=== PATIENT | female | born 1995 | race Two or more races ===

== ENCOUNTER 2016-09-10 23:31 | Emergency (ER) | payer MEDICAID ==
[~2016-09-10] VITALS: Ht 152.4 cm; Wt 66.0 kg
[~2016-09-10 23:31] MED LIST: AMOX1TAB64 PO; LEVO500T33 PO; MAGN64TA9 PO; OXYC1TAB7 PO
[2016-09-10 23:39] VITALS: BP 118/77
== END 2016-09-11 00:33 | disposition home or self-care (01) ==
LOC: ED 23:59
DX: K02.9 Dental caries, unspecified (principal)
CPT/HCPCS: 99283

== ENCOUNTER 2016-11-11 13:35 | Inpatient (IN) | payer MEDICAID ==
[~2016-11-11] VITALS: Ht 152.4 cm; Wt 65.3 kg
[2016-11-11 15:28] LABS: HEMATOCRIT 29.8 % (34.6-47.8); WHITE BLOOD COUNT 10.7 x10^3/uL (3.4-10)
[2016-11-11 16:03] LABS: ASPARTATE AMINO TRANSFERASE 13 U/L (15-37); BLOOD UREA NITROGEN 6 mg/dL (7-18)
[2016-11-11] MEDS ORDERED: SODIUM CHLORIDE 0.9% 1,000ML IVBOLUS ONE (17:00)
[2016-11-11] MEDS ORDERED: CEFTRIAXONE PMX 1GM/50ML 50 ML IV ONE (17:00)
[2016-11-11] MEDS ORDERED: SODIUM CHLORIDE 0.9% 1,000 ML IV ONE (17:03)
[2016-11-11] MEDS ORDERED: CEFTRIAXONE PMX 1GM/50ML 50 ML ONE (17:20)
[2016-11-11] MEDS ORDERED: POTASSIUM CHLORIDE 20 MEQ TAB.ER.PRT PO ONE (17:30)
[2016-11-11] MEDS ORDERED: ONDANSETRON ODT 4 MG PO PRN (17:30)
[2016-11-11] MEDS: CEFTRIAXONE PMX 1GM/50ML 50 ML IV SCH (17:30)
[2016-11-11] MEDS ORDERED: SODIUM CHLORIDE FLUSH 10ML SYR IVF PRN (17:30)
[2016-11-11] MEDS ORDERED: ACETAMINOPHEN 325 MG TABLET PO PRN (17:30)
[2016-11-11] MEDS ORDERED: DOCUSATE 100 MG CAPSULE PO PRN (17:30)
[2016-11-11] MEDS ORDERED: CALCIUM CARBONATE 500 MG TAB.CHEW PO PRN (17:30)
[2016-11-11 17:46] LABS: FERRITIN 7.8 ng/mL (8-252)
[2016-11-11 19:00] VITALS: BP 89/57
[2016-11-11] MEDS: NS + 20MEQ KCL 1,000 ML IV SCH (21:24)
[2016-11-11] MEDS: PRENATAL VIT/IRON/FA 1 EACH TABLET PO SCH (21:25)
[2016-11-11 21:34] VITALS: BP 89/57
[2016-11-12 00:01] VITALS: BP 102/65
[2016-11-12] MEDS: NS + 20MEQ KCL 1,000 ML IV SCH ×2 (05:27→16:36)
[2016-11-12 05:59] LABS: HEMATOCRIT 30.3 % (34.6-47.8); HEMOGLOBIN 10.2 g/dL (11.7-16.4); WHITE BLOOD COUNT 9.8 x10^3/uL (3.4-10)
[2016-11-12 06:07] VITALS: BP 99/65
[2016-11-12 06:22] LABS: BLOOD UREA NITROGEN 6 mg/dL (7-18)
[2016-11-12] MEDS: PRENATAL VIT/IRON/FA 1 EACH TABLET PO SCH (08:21)
[2016-11-12 14:30] VITALS: BP 101/63
[2016-11-12] MEDS: CEFTRIAXONE PMX 1GM/50ML 50 ML IV SCH (16:37)
[2016-11-12] MEDS: FERROUS SULFATE 325 MG TABLET PO SCH (18:12)
[2016-11-12 20:23] VITALS: BP 97/64
[2016-11-13] MEDS: NS + 20MEQ KCL 1,000 ML IV SCH ×4 (00:09→19:25)
[2016-11-13 05:12] LABS: HEMATOCRIT 30.6 % (34.6-47.8); HEMOGLOBIN 10.3 g/dL (11.7-16.4)
[2016-11-13 05:21] LABS: BLOOD UREA NITROGEN 6 mg/dL (7-18)
[2016-11-13 05:23] LABS: ASPARTATE AMINO TRANSFERASE 12 U/L (15-37)
[2016-11-13 05:46] VITALS: BP 107/74
[2016-11-13 07:32] VITALS: BP 96/66
[2016-11-13] MEDS: PRENATAL VIT/IRON/FA 1 EACH TABLET PO SCH (09:51)
[2016-11-13] MEDS: FERROUS SULFATE 325 MG TABLET PO SCH ×2 (09:51→17:37)
[2016-11-13] MEDS ORDERED: ONDANSETRON ODT 4 MG PO PRN (14:00)
[2016-11-13] MEDS ORDERED: CALCIUM CARBONATE 500 MG TAB.CHEW PO PRN (14:00)
[2016-11-13] MEDS ORDERED: ACETAMINOPHEN 325 MG TABLET PO PRN (14:00)
[2016-11-13] MEDS ORDERED: DOCUSATE 100 MG CAPSULE PO PRN (14:00)
[2016-11-13 14:50] VITALS: BP 99/67
[2016-11-13] MEDS: CEFTRIAXONE PMX 1GM/50ML 50 ML IV SCH (17:38)
[2016-11-13 19:39] VITALS: BP 99/64
[2016-11-14 01:00] VITALS: BP 100/69
[2016-11-14] MEDS: NS + 20MEQ KCL 1,000 ML IV SCH (03:08)
[2016-11-14] MEDS ORDERED: PREN1TAB14 PO (08:38)
[2016-11-14] MEDS ORDERED: CEFD300C37 PO (08:38)
[2016-11-14] MEDS ORDERED: CEFDINIR 300 MG CAPSULE PO SCH (09:00)
[2016-11-14] MEDS: FERROUS SULFATE 325 MG TABLET PO SCH (10:02)
[2016-11-14] MEDS: PRENATAL VIT/IRON/FA 1 EACH TABLET PO SCH (10:03)
[2016-11-14 10:13] VITALS: BP 103/69
== END 2016-11-14 10:54 | disposition home or self-care (01) | DRG 781 ==
LOC: ED 15:54 → EDIP 17:03 → 3NE 19:00 → DCLOUNGE 11-14 10:35
PROVIDERS: ADMIT Internal Medicine; ATTEND Internal Medicine
DX: O98.811 Other maternal infectious and parasitic diseases complicating pregnancy, first trimester (principal); A41.9 Sepsis, unspecified organism; E43 Unspecified severe protein-calorie malnutrition; O23.02 Infections of kidney in pregnancy, second trimester; D50.9 Iron deficiency anemia, unspecified; F17.200 Nicotine dependence, unspecified, uncomplicated; O99.322 Drug use complicating pregnancy, second trimester; E87.6 Hypokalemia; B96.20 Unspecified Escherichia coli [E. coli] as the cause of diseases classified elsewhere; F12.90 Cannabis use, unspecified, uncomplicated; K21.9 Gastro-esophageal reflux disease without esophagitis; O25.12 Malnutrition in pregnancy, second trimester; O99.012 Anemia complicating pregnancy, second trimester; Z32.01 Encounter for pregnancy test, result positive; B95.1 Streptococcus, group B, as the cause of diseases classified elsewhere; O99.282 Endocrine, nutritional and metabolic diseases complicating pregnancy, second trimester; O99.332 Smoking (tobacco) complicating pregnancy, second trimester; O99.612 Diseases of the digestive system complicating pregnancy, second trimester; Z68.28 Body mass index [BMI] 28.0-28.9, adult; Z3A.14 14 weeks gestation of pregnancy; Z83.3 Family history of diabetes mellitus; Z80.9 Family history of malignant neoplasm, unspecified
CPT/HCPCS: 36415; 76801; 80048; 80053; 81001; 82728; 83540; 83550; 83605; 83735; 84145; 84466; 84702; 85025; 87040; 87077; 87086; 87147; 87186; 99285; J0696; J3480; J7030

== ENCOUNTER 2018-02-14 16:17 | Emergency (ER) | payer MEDICAID, OTHER ==
[~2018-02-14] VITALS: Ht 152.4 cm; Wt 69.5 kg
[~2018-02-14 16:17] MED LIST changes: +CEFD300C37 PO; -LEVO500T33 PO; +LEVO500T47 PO; -MAGN64TA9 PO; +MAGNESIUM DR64 MG PO; +PREN1TAB14 PO
[2018-02-14 16:21] VITALS: BP 126/33
== END 2018-02-14 17:07 | disposition home or self-care (01) ==
LOC: ED 16:40
DX: J06.9 Acute upper respiratory infection, unspecified (principal); J20.8 Acute bronchitis due to other specified organisms; H92.01 Otalgia, right ear; B97.89 Other viral agents as the cause of diseases classified elsewhere
CPT/HCPCS: 71046; 99283

== ENCOUNTER 2018-04-03 13:31 | Emergency (ER) | payer MEDICAID ==
[~2018-04-03] VITALS: Ht 152.4 cm; Wt 72.1 kg
--- NOTE | 2018-04-03 14:53 | NUR ---
RETURNED FROM LUNCH AND REPORT RECEIVED FROM GUEYDAN. PATIENT IN BED, SIG OTHER AT BEDSIDE. COLLECTING URINE FROM PATIENT AT THIS TIME. VSS. ON MONITOR, RAILS UP, GOWNED. PATIENT APPARENTLY ARRIVED WITH VAGINAL BLEEDING DURING EARLY STAGES OF .
[2018-04-03 15:04] LABS: BASOPHILS # (AUTO) 0.03 x10^3/uL (0-0.1); BASOPHILS % (AUTO) 0 % (0-1); EOSINOPHILS # (AUTO) 0.06 x10^3/uL (0-0.4); EOSINOPHILS % (AUTO) 1 % (1-7); LYMPHOCYTES % (AUTO) 31 % (22-44); MD NO; MEAN CORPUSCULAR HEMOGLOBIN 26.1 pg (27.0-34.8); MEAN CORPUSCULAR HGB CONC 33.4 g/dL (32.4-35.8); MEAN CORPUSCULAR VOLUME 78.1 fL (80-100); MEAN PLATELET VOLUME 9.3 fL (7.4-10.4); MONOCYTES # (AUTO) 0.59 x10^3/uL (0.2-0.8); MONOCYTES % (AUTO) 7 % (2-9); NEUTROPHILS # (AUTO) 5.23 x10^3/uL (1.8-6.8); NEUTROPHILS % (AUTO) 61 % (42-75); PLATELET COUNT 280 x10^3/uL (130-400); RED BLOOD COUNT 4.26 x10^6/uL (3.82-5.3)
--- NOTE | 2018-04-03 15:11 | NUR ---
urine sent to lab labeled in patient presence.
[2018-04-03 15:49] LABS: CULTURE INDICATED? NO; MICROSCOPIC NOT IND
[2018-04-03 15:55] VITALS: BP 123/78
--- NOTE | 2018-04-03 15:56 | NUR ---
PATIENT DISCHARGE INSTRUCTIONS REVIEWED. SHOWS UNDERSTANDING.
== END 2018-04-03 16:07 | disposition home or self-care (01) ==
LOC: ED 14:58
DX: O20.0 Threatened abortion (principal); Z3A.08 8 weeks gestation of pregnancy
CPT/HCPCS: 36415; 76801; 81003; 84702; 85025; 86901; 99284

== ENCOUNTER 2018-09-25 21:56 | Emergency (ER) | payer MEDICAID, OTHER ==
[~2018-09-25] VITALS: Ht 152.4 cm; Wt 68.1 kg
[2018-09-25 22:15] VITALS: BP 87/54
--- NOTE | 2018-09-25 22:45 | NUR ---
PT IN GOWN AND ATTACHED TO MONITOR, AAO X 4, VSS. HERE TO DETERMINE IF . PT HAS BLOATING, CRAMPS, POSITIVE TEST 3 WEEKS AGO.
--- NOTE | 2018-09-25 22:54 | NUR ---
REPORT GIVEN TO LAWRENCE TORRES
--- NOTE | 2018-09-25 23:10 | NUR ---
PT GOING TO US.
[2018-09-25 23:19] LABS: MICROSCOPIC AUTO
--- NOTE | 2018-09-25 23:22 | NUR ---
PT BACK FROM US
[2018-09-25 23:24] LABS: CULTURE INDICATED? YES
[2018-09-25 23:41] LABS: BASOPHILS # (AUTO) 0.03 x10^3/uL (0-0.1); BASOPHILS % (AUTO) 0 % (0-1); EOSINOPHILS # (AUTO) 0.03 x10^3/uL (0-0.4); EOSINOPHILS % (AUTO) 0 % (1-7); LYMPHOCYTES % (AUTO) 30 % (22-44); MD NO; MEAN CORPUSCULAR HEMOGLOBIN 26.2 pg (27.0-34.8); MEAN CORPUSCULAR VOLUME 79.4 fL (80-100); MEAN PLATELET VOLUME 9.1 fL (7.4-10.4); MONOCYTES # (AUTO) 0.56 x10^3/uL (0.2-0.8); MONOCYTES % (AUTO) 6 % (2-9); NEUTROPHILS # (AUTO) 5.81 x10^3/uL (1.8-6.8); NEUTROPHILS % (AUTO) 63 % (42-75); PLATELET COUNT 324 x10^3/uL (130-400); RED BLOOD COUNT 3.57 x10^6/uL (3.82-5.3); RED CELL DISTRIBUTION WIDTH 17.5 % (9.6-15.2)
[2018-09-25 23:45] LABS: ALANINE AMINOTRANSFERASE 12 U/L (12-78); ALBUMIN 2.8 g/dL (3.4-5.0); ANION GAP 9 mmol/L (5-15); CALCIUM 8.2 mg/dL (8.5-10.1); CHLORIDE 111 mmol/L (98-107)
--- NOTE | 2018-09-25 23:57 | NUR ---
LABS PENDING AT THIS TIME. US RESULTED, PT RESTING CALMLY IN BED AT THIS TIME.
[2018-09-26 00:02] LABS: CREATININE 0.54 mg/dL (0.55-1.02)
[2018-09-26 00:03] LABS: ALKALINE PHOSPHATASE 66 U/L (45-117); BILIRUBIN,TOTAL 0.2 mg/dL (0.2-1.0); TOTAL PROTEIN 6.7 g/dL (6.4-8.2)
== END 2018-09-26 01:24 | disposition home or self-care (01) ==
LOC: ED 09-26 00:31
DX: O26.892 Other specified pregnancy related conditions, second trimester (principal); M54.5 Low back pain; Z3A.17 17 weeks gestation of pregnancy
CPT/HCPCS: 36415; 76815; 80053; 81001; 84702; 85025; 86901; 87086; 99284

== ENCOUNTER 2019-02-15 15:25 | Emergency (ER) | payer SELFPAY ==
[~2019-02-15] VITALS: Ht 152.4 cm; Wt 73.0 kg
--- NOTE | 2019-02-15 15:34 | NUR ---
23 Y/O FEMALE BIB AMBULANCE WITH C/O MENDOZA. PER REPOT PT HAS HAD COUGH AND COLD FOR 2 DAYS. THIS MORNING SHE GOT A HEADACHE. SHE ALSO STATED SHE IS AND DUE 03/15/2019. NO CARE, BUT TAKES VITAMINS. "I CALLED BECAUSE MY FEET HURT REALLY BAD AND I CAN'T WALK ON THEM. THEY'VE BEEN SWOLLEN FOR ABOUT TWO WEEKS. AND MY HEAD IS KILLING ME. MY HEADACHE STARTED TODAY." PT PLACED ON CONT PULSE OX,NIBP. NO C/O N/V/D, TRAUMA, SYNCOPE, CP, SOB, OR ABDOMINAL PAIN.
--- NOTE | 2019-02-15 15:39 | NUR ---
PT STATES "I USE HEROIN AND MARUJUANA. I DID HEROIN YESTERDAY."
[2019-02-15] MEDS ORDERED: ACETAMINOPHEN 500 MG TABLET PO ONE (16:00)
[2019-02-15] MEDS ORDERED: CALCIUM CARBONATE 500 MG TAB.CHEW PO ONE (16:00)
[2019-02-15] MEDS ORDERED: ONDANSETRON ODT 8 MG PO ONE (16:00)
[2019-02-15] MEDS ORDERED: ONDANSETRON ODT 8 MG ONE (16:13)
[2019-02-15] MEDS ORDERED: CALCIUM CARBONATE 500 MG TAB.CHEW ONE (16:13)
[2019-02-15] MEDS ORDERED: ACETAMINOPHEN 500 MG TABLET ONE (16:14)
--- NOTE | 2019-02-15 16:21 | NUR ---
PT MEDICATED PER MAR. VSS. US COMPLETE. L&D RN TO BS FOR FHT. NO NEEDS EXPRESSED. AWAITING RESUTLS.
[2019-02-15 16:27] LABS: ALBUMIN 1.3 g/dL (3.4-5.0); ANION GAP 7 mmol/L (5-15); CALCIUM 7.9 mg/dL (8.5-10.1); CHLORIDE 109 mmol/L (98-107)
--- NOTE | 2019-02-15 16:29 | NUR ---
PT RESTING IN ROOM. MORE CALM AFTER ATHLETIC AGENT. VSS. NO NEEDS EXPRESSED. AWAITING RESULTS.
[2019-02-15 16:30] LABS: ALANINE AMINOTRANSFERASE 15 U/L (12-78); ALKALINE PHOSPHATASE 267 U/L (45-117); BILIRUBIN,TOTAL 0.4 mg/dL (0.2-1.0); CREATININE 1.27 mg/dL (0.55-1.02); TOTAL PROTEIN 5.4 g/dL (6.4-8.2)
--- NOTE | 2019-02-15 17:01 | NUR ---
REPORT TO BRIAN DAVISON. PT RESTING IN ROOM. PELVIC BED AND PELVIC CART READY. PER L&D NURSE, WILL NEED EVALUATION IN THEIR DEPT AFTER MED CLEARANCE.
[2019-02-15 17:10] LABS: MD YES; MEAN CORPUSCULAR HEMOGLOBIN 22.3 pg (27.0-34.8); MEAN CORPUSCULAR VOLUME 69.7 fL (80-100); MEAN PLATELET VOLUME 10.9 fL (7.4-10.4); PLATELET COUNT 127 x10^3/uL (130-400); RED BLOOD COUNT 4.41 x10^6/uL (3.82-5.3); RED CELL DISTRIBUTION WIDTH 18.8 % (9.6-15.2)
[2019-02-15 17:13] LABS: BAND#(MANUAL) 0.78 x10^3/uL; BANDS%(MANUAL) 12 % (0-7); LYMPH#(MANUAL) 0.72 x10^3/uL (1-3.4); LYMPHS% (MANUAL) 11 % (22-44); METAMYELOCYTES# (MANUAL) 0.07 x10^3/uL (0-0); METAMYELOCYTES% (MANUAL) 1 % (0-1); MONOS#(MANUAL) 0.26 x10^3/uL (0.3-2.7); MONOS% (MANUAL) 4 % (2-9); NRBC % (MANUAL) 1 % (0-1); SEG#(MANUAL) 4.68 x10^3/uL (1.8-6.8); SEGS% (MANUAL) 72 % (42-75)
[2019-02-15 17:14] LABS: ANISOCYTOSIS 1+; HYPOCHROMIA 1+; MICROCYTOSIS 1+; POLYCHROMASIA 1+
[2019-02-15 17:15] LABS: <PLATELET ESTIMATE> DECREASED; GIANT PLATELETS 1+; LARGE PLATELETS 1+
--- NOTE | 2019-02-15 17:32 | NUR ---
PELVIC EXAM COMPLETED BY DR SU WITH THIS RN POTATO CHIP COOKER MACHINE. SWABS SENT TO LAB.
--- NOTE | 2019-02-15 17:33 | NUR ---
PT RESTING IN ROOM. VSS. CRACKERS AND JUICE PROVIDED. NO OTHER NEEDS EXPRESSED. AWAITING RESUTLS.
[2019-02-15 17:41] LABS: CULTURE INDICATED? YES; MICROSCOPIC INDICATED
[2019-02-15 17:50] LABS: CLUE CELLS NONE SEEN (NONE SEEN); WET PREP WBCS MANY (FEW)
[2019-02-15] MEDS ORDERED: AZITHROMYCIN 500 MG TABLET PO ONE (18:00)
[2019-02-15] MEDS ORDERED: CEFTRIAXONE 250 MG IM ONE (18:00)
[2019-02-15 18:18] LABS: AMPHETAMINE SCREEN, URINE Positive (Negative); BARBITURATE SCREEN, URINE Negative (Negative); BENZODIAZEPINE SCREEN, URINE Negative (Negative); CANNABINOID SCREEN, URINE Positive (Negative); COCAINE SCREEN, URINE Negative (Negative); METHADONE SCREEN, URINE Negative (Negative); OPIATE SCREEN, URINE Positive (Negative)
[2019-02-15 18:44] VITALS: BP 137/65
--- NOTE | 2019-02-15 18:45 | NUR ---
Data Mining Analyst reviewed discharge paperwork. Focused on neccesity of taking abx for UTI, avoiding illicits. Transfered to OB via wheelchair by EMT
[2019-02-15] MEDS ORDERED: AZITHROMYCIN 500 MG TABLET ONE (19:13)
[2019-02-15] MEDS ORDERED: LIDOCAINE-MPF 1%, 2ML ONE (19:13)
[2019-02-15] MEDS ORDERED: CEFTRIAXONE 250 MG ONE (19:14)
== END 2019-02-15 18:46 | disposition home or self-care (01) ==
LOC: ED 15:50
DX: O23.43 Unspecified infection of urinary tract in pregnancy, third trimester (principal); O9A.213 Injury, poisoning and certain other consequences of external causes complicating pregnancy, third trimester; D64.9 Anemia, unspecified; R51 Headache; F11.10 Opioid abuse, uncomplicated; F15.10 Other stimulant abuse, uncomplicated; R60.0 Localized edema; Z3A.35 35 weeks gestation of pregnancy
CPT/HCPCS: 31500; 36415; 76815; 80053; 80307; 81001; 85025; 87086; 87210; 87491; 87591; 87808; 92950; 96372; 99284; J0696; Q0162

== ENCOUNTER 2019-02-15 18:48 | Inpatient (IN) | payer MEDICAID ==
[~2019-02-15] VITALS: Ht 152.4 cm; Wt 65.7 kg
[2019-02-15] MEDS ORDERED: ACETAMINOPHEN 325 MG TABLET ONE (19:39)
[2019-02-15] MEDS: ACETAMINOPHEN 650 MG/20.3 ML UDC PO PRN (19:45)
[2019-02-15] MEDS ORDERED: CALCIUM CARBONATE 500 MG TAB.CHEW ONE (19:59)
[2019-02-15] MEDS: CALCIUM CARBONATE 500 MG TAB.CHEW PO PRN (20:30)
[2019-02-15 20:59] LABS: MICROSCOPIC INDICATED
[2019-02-15] MEDS ORDERED: BETAMETHASONE 6 MG/ML, 5ML IM ONE (21:13)
[2019-02-15] MEDS ORDERED: hydrOXYzine 50 MG/ML IM PRN (21:30)
[2019-02-15] MEDS ORDERED: BETAMETHASONE 6 MG/ML, 5ML IM SCH (21:30)
[2019-02-15] MEDS ORDERED: D5%-LACTATED RINGERS 1,000 ML IV SCH (22:05)
[2019-02-15] MEDS ORDERED: AMPICILLIN 2 GM in SODIUM CHLORIDE 0.9% 100 ML IVPB ONE (22:05)
[2019-02-15] MEDS ORDERED: OXYTOCIN 30U/ 0.9% NaCL 500ML 500 ML IV PRN (22:05)
[2019-02-15] MEDS ORDERED: LACTATED RINGERS 1,000 ML IV SCH ×2 (22:05→22:48)
[2019-02-15] MEDS ORDERED: MAGNESIUM SULF. PMX 20GM/500ML 500 ML IV ONE (22:16)
[2019-02-15] MEDS ORDERED: OXYTOCIN 30U/ 0.9% NaCL 500ML 500 ML ONE (22:16)
[2019-02-15] MEDS ORDERED: NEWBORN KIT ONE (22:17)
[2019-02-15] MEDS ORDERED: MISOPROSTOL 200 MCG TABLET ONE (22:17)
[2019-02-15] MEDS ORDERED: LIDOCAINE 1%, 20ML ONE (22:17)
[2019-02-15] MEDS ORDERED: FENTANYL PF 100 MCG/2ML IV PRN (22:30)
[2019-02-15] MEDS ORDERED: metroNIDAZOLE 500 MG TABLET PO ONE (22:30)
[2019-02-15] MEDS: MAGNESIUM SULF. PMX 20GM/500ML 500 ML IV SCH (22:30)
[2019-02-15] MEDS ORDERED: ALUMINUM/MAG/SIMETHICONE 30 ML UDC PO PRN (22:30)
[2019-02-15] MEDS ORDERED: MAGNESIUM SULFATE PMX 4GM/100M 100 ML IVPB ONE (22:30)
[2019-02-15] MEDS ORDERED: FENTANYL PF 100 MCG/2ML IVPush PRN (22:30)
[2019-02-15] MEDS ORDERED: FENTANYL/BUPIV./NS/PF 250 ML EPIDCONT SCH (22:48)
[2019-02-15] MEDS: LACTATED RINGERS 1,000 ML IVBOLUS PRN (22:56)
[2019-02-15] MEDS ORDERED: EPHEDRINE 50 MG/ML, 1ML IVPush PRN (23:00)
[2019-02-15] MEDS ORDERED: ONDANSETRON 2MG/ML, 2ML ONE (23:12)
[2019-02-15] MEDS: ONDANSETRON 2MG/ML, 2ML IVPush PRN (23:13)
[2019-02-15] MEDS ORDERED: BUPIVACAINE 0.25% ONE (23:26)
[2019-02-16] MEDS ORDERED: EPHEDRINE 50 MG/ML, 1ML ONE ×2 (00:26→01:53)
[2019-02-16 02:05] LABS: ALANINE AMINOTRANSFERASE 12 U/L (12-78); ALBUMIN 1.2 g/dL (3.4-5.0); ANION GAP 9 mmol/L (5-15); CALCIUM 7.7 mg/dL (8.5-10.1); CHLORIDE 109 mmol/L (98-107); CREATININE 1.34 mg/dL (0.55-1.02)
[2019-02-16 02:08] LABS: ALKALINE PHOSPHATASE 251 U/L (45-117); BILIRUBIN,TOTAL 0.3 mg/dL (0.2-1.0); TOTAL PROTEIN 4.9 g/dL (6.4-8.2)
[2019-02-16] MEDS: AMPICILLIN 1 GM in SODIUM CHLORIDE 0.9% 50 ML IVPB SCH ×2 (02:30→06:20)
[2019-02-16 03:17] LABS: MD YES; MEAN CORPUSCULAR HEMOGLOBIN 21.7 pg (27.0-34.8); MEAN CORPUSCULAR HGB CONC 30.9 g/dL (32.4-35.8); MEAN PLATELET VOLUME 13.6 fL (7.4-10.4); PLATELET COUNT 160 x10^3/uL (130-400); RED BLOOD COUNT 3.94 x10^6/uL (3.82-5.3); RED CELL DISTRIBUTION WIDTH 19.6 % (9.6-15.2)
[2019-02-16 03:19] LABS: <PLATELET ESTIMATE> ADEQUATE; ANISOCYTOSIS 1+; BAND#(MANUAL) 0.21 x10^3/uL; BANDS%(MANUAL) 4 % (0-7); HYPOCHROMIA 1+; LARGE PLATELETS 1+; LYMPH#(MANUAL) 0.64 x10^3/uL (1-3.4); LYMPHS% (MANUAL) 12 % (22-44); MICROCYTOSIS 1+; POLYCHROMASIA 1+; SEG#(MANUAL) 4.45 x10^3/uL (1.8-6.8); SEGS% (MANUAL) 84 % (42-75)
[2019-02-16] MEDS ORDERED: CALCIUM CARBONATE 500 MG TAB.CHEW ONE (05:02)
[2019-02-16] MEDS: CALCIUM CARBONATE 500 MG TAB.CHEW PO PRN (05:06)
[2019-02-16] MEDS ORDERED: MAGNESIUM SULF. PMX 20GM/500ML 500 ML IV ONE (06:13)
[2019-02-16] MEDS: MAGNESIUM SULF. PMX 20GM/500ML 500 ML IV SCH (06:20)
[2019-02-16] MEDS ORDERED: ONDANSETRON 2MG/ML, 2ML ONE ×2 (07:45→08:15)
[2019-02-16] MEDS ORDERED: SODIUM CITRATE/CITRIC ACID 30 ML UDC ONE (07:45)
[2019-02-16] MEDS: ONDANSETRON 2MG/ML, 2ML IVPush PRN ×2 (07:48→08:14)
[2019-02-16] MEDS ORDERED: METOCLOPRAMIDE 5 MG/ML, 2ML ONE (08:09)
[2019-02-16] MEDS ORDERED: OXYTOCIN 10 UNITS/ML, 1ML ONE (08:15)
[2019-02-16] MEDS ORDERED: CEFAZOLIN 1,000 MG ONE (08:15)
[2019-02-16] MEDS ORDERED: HYDROmorphone 2 MG/ML, 1ML ONE (08:16)
[2019-02-16] MEDS ORDERED: FENTANYL PF 100 MCG/2ML ONE (08:16)
[2019-02-16] MEDS: SODIUM CITRATE/CITRIC ACID 30 ML UDC PO PRN ×2 (08:20→11:46)
[2019-02-16] MEDS ORDERED: METOCLOPRAMIDE 5 MG/ML, 2ML IV ONE (08:30)
[2019-02-16] MEDS ORDERED: LACTATED RINGERS 1,000 ML IVBOLUS ONE (08:30)
[2019-02-16] MEDS ORDERED: SODIUM CITRATE/CITRIC ACID 30 ML UDC PO ONE (08:30)
[2019-02-16] MEDS ORDERED: LIDOCAINE 2% 100MG/5ML SYRINGE ONE ×2 (08:33)
[2019-02-16] MEDS ORDERED: AZITHROMYCIN 500 MG in SODIUM CHLORIDE 0.9% 250 ML IV ONE (10:00)
[2019-02-16] MEDS: OXYTOCIN 30U/ 0.9% NaCL 500ML 500 ML IV SCH ×2 (10:17→20:17)
[2019-02-16] MEDS ORDERED: LACTATED RINGERS 1,000 ML IV SCH ×2 (10:17)
[2019-02-16] MEDS ORDERED: MISOPROSTOL 200 MCG TABLET PR PRN (10:30)
[2019-02-16] MEDS ORDERED: morphine SULFATE 10 MG/ML, 1ML IVPush PRN (10:30)
[2019-02-16] MEDS ORDERED: SIMETHICONE 80 MG CHEW TAB PO PRN (10:30)
[2019-02-16] MEDS: LACTATED RINGERS 1,000 ML IVBOLUS PRN (10:30)
[2019-02-16] MEDS ORDERED: ACETAMINOPHEN 325 MG TABLET PO PRN (10:30)
[2019-02-16] MEDS ORDERED: ONDANSETRON 2MG/ML, 2ML IV PRN (10:30)
[2019-02-16] MEDS ORDERED: CARBOPROST TROMETHAMINE 250 MCG/ML, 1ML IM PRN (10:30)
[2019-02-16] MEDS ORDERED: IBUPROFEN 600 MG TABLET PO PRN (10:30)
[2019-02-16] MEDS: OXYcodone/APAP 5/325MG TABLET PO PRN ×3 (12:49→20:51)
[2019-02-16] MEDS ORDERED: SODIUM CHLORIDE 0.9% 1,000 ML IV SCH (13:00)
[2019-02-16] MEDS ORDERED: hydrALAzine 20 MG/ML, 1ML IV PRN (13:00)
[2019-02-16] MEDS: SODIUM CHLORIDE 0.9% 1,000 ML IV SCH ×2 (14:23→23:37)
[2019-02-16] MEDS: METHYLNALTREXONE 12 MG/0.6 ML SQ SCH (16:24)
[2019-02-16] MEDS ORDERED: FERROUS SULFATE 325 MG TABLET PO SCH (17:00)
[2019-02-16 17:28] LABS: MEAN CORPUSCULAR HEMOGLOBIN 22.1 pg (27.0-34.8); MEAN CORPUSCULAR HGB CONC 31.2 g/dL (32.4-35.8); MEAN CORPUSCULAR VOLUME 70.7 fL (80-100); MEAN PLATELET VOLUME 12.8 fL (7.4-10.4); PLATELET COUNT 181 x10^3/uL (130-400); RED BLOOD COUNT 2.92 x10^6/uL (3.82-5.3); RED CELL DISTRIBUTION WIDTH 19.6 % (9.6-15.2)
[2019-02-16 17:29] LABS: HEMOGRAM NOTE RECHECKED
[2019-02-16 18:15] VITALS: BP 87/66
[2019-02-16 18:20] LABS: MD YES
[2019-02-16 18:23] LABS: ANISOCYTOSIS 1+; BANDS%(MANUAL) 13 % (0-7); HYPOCHROMIA 1+; LYMPH#(MANUAL) 1.61 x10^3/uL (1-3.4); LYMPHS% (MANUAL) 14 % (22-44); METAMYELOCYTES# (MANUAL) 0.23 x10^3/uL (0-0); METAMYELOCYTES% (MANUAL) 2 % (0-1); MICROCYTOSIS 1+; MONOS#(MANUAL) 0.35 x10^3/uL (0.3-2.7); MONOS% (MANUAL) 3 % (2-9); POLYCHROMASIA 1+; SEG#(MANUAL) 7.82 x10^3/uL (1.8-6.8); SEGS% (MANUAL) 68 % (42-75)
[2019-02-16 18:24] LABS: <PLATELET ESTIMATE> ADEQUATE; BASOPHILLIC STIPPLING 1+; LARGE PLATELETS 1+
[2019-02-16] MEDS ORDERED: MAGNESIUM SULF. PMX 20GM/500ML 500 ML IV SCH ×2 (20:30→22:05)
[2019-02-16] MEDS: DOCUSATE 100 MG CAPSULE PO PRN (20:53)
[2019-02-16 21:05] VITALS: BP 115/83
[2019-02-16] MEDS: ACETAMINOPHEN 650 MG/20.3 ML UDC PO PRN (23:37)
[2019-02-17] VITALS (26 sets, daily range): BP systolic 45–195; BP diastolic 57–120
[2019-02-17] MEDS: OXYcodone/APAP 5/325MG TABLET PO PRN ×2 (01:00→05:09)
[2019-02-17] MEDS: OXYTOCIN 30U/ 0.9% NaCL 500ML 500 ML IV SCH (05:04)
[2019-02-17 06:36] LABS: CHLORIDE 106 mmol/L (98-107)
[2019-02-17 06:37] LABS: ANION GAP 11 mmol/L (5-15); CALCIUM 6.3 mg/dL (8.5-10.1); CREATININE 1.61 mg/dL (0.55-1.02)
[2019-02-17] MEDS ORDERED: CALCIUM CHLORIDE 13.6 MEQ/10 ML ONE (08:00)
[2019-02-17] MEDS ORDERED: EPINEPHRINE SYRINGE 0.1 MG/ML, 10ML ONE (08:00)
[2019-02-17] MEDS ORDERED: CODE BLUE RESPONSE XX ONE (08:00)
[2019-02-17] MEDS ORDERED: ATROPINE SYRINGE 0.1 MG/ML, 10ML ONE (08:00)
[2019-02-17] MEDS ORDERED: SODIUM BICARB 8.4%, 50ML SYRINGE ONE (08:00)
[2019-02-17] MEDS ORDERED: SUCCINYLCHOLINE 20 MG/ML, 10ML ONE (08:00)
[2019-02-17 08:20] LABS: MEAN CORPUSCULAR HEMOGLOBIN 25.6 pg (27.0-34.8); MEAN CORPUSCULAR HGB CONC 31.5 g/dL (32.4-35.8); MEAN CORPUSCULAR VOLUME 81.3 fL (80-100); RED BLOOD COUNT 1.94 x10^6/uL (3.82-5.3); RED CELL DISTRIBUTION WIDTH 26.8 % (9.6-15.2)
[2019-02-17 08:23] LABS: MD YES
[2019-02-17 08:36] LABS: MEAN PLATELET VOLUME 10.4 fL (7.4-10.4); PLATELET COUNT 13 x10^3/uL (130-400)
[2019-02-17 08:38] LABS: BAND#(MANUAL) 0.65 x10^3/uL; BANDS%(MANUAL) 6 % (0-7); LYMPH#(MANUAL) 5.45 x10^3/uL (1-3.4); LYMPHS% (MANUAL) 50 % (22-44); MONOS#(MANUAL) 0.22 x10^3/uL (0.3-2.7); MONOS% (MANUAL) 2 % (2-9); NRBC % (MANUAL) 2 % (0-1); SEG#(MANUAL) 4.58 x10^3/uL (1.8-6.8); SEGS% (MANUAL) 42 % (42-75)
[2019-02-17 08:39] LABS: ACANTHOCYTES 1+; ANISOCYTOSIS 2+; ECHINOCYTES 1+; HYPOCHROMIA 1+; MICROCYTOSIS 1+; OVALOCYTES 1+
[2019-02-17 08:40] LABS: <PLATELET ESTIMATE> DECREASED; LARGE PLATELETS 1+; SMUDGE CELLS 1+
[2019-02-17] MEDS ORDERED: PROPOFOL 100 ML IV PRN (08:48)
[2019-02-17 08:58] LABS: INTERNATIONAL NORMALIZED RATIO 1.1 (0.93-1.1); PROTHROMBIN TIME 11.5 Seconds (9.6-11.5)
[2019-02-17] MEDS: PRENATAL VIT/IRON/FA 1 EACH TABLET PO SCH (09:00)
[2019-02-17] MEDS ORDERED: LABETALOL 250 MG in DEXTROSE 5% 200 ML IV PRN (09:00)
[2019-02-17] MEDS ORDERED: PHARMACY MAY ADJ FOR RENAL FX MC SCH (09:00)
[2019-02-17] MEDS: LACTULOSE 20 GM/30 ML UDC PO SCH (09:00)
[2019-02-17] MEDS ORDERED: PROPOFOL 10 MG/ML, 20ML IVPush ONE (09:00)
[2019-02-17] MEDS ORDERED: PROPOFOL 100 ML IV ONE (09:03)
[2019-02-17] MEDS ORDERED: NOREPINEPHRINE 1 MG/ML, 4ML ONE (09:49)
[2019-02-17] MEDS ORDERED: IRON SUCROSE COMPLEX 100MG/5ML IV SCH (10:30)
[2019-02-17] MEDS ORDERED: SODIUM CHLORIDE 0.9% 1,000 ML IV SCH (10:30)
[2019-02-17 10:46] LABS: PROTHROMBIN TIME 10.5 Seconds (9.6-11.5)
[2019-02-17] MEDS ORDERED: NOREPINEPHRINE 8 MG in SODIUM CHLORIDE 0.9% 242 ML IV PRN (11:00)
[2019-02-17] MEDS ORDERED: NOREPINEPHRINE 4 MG in SODIUM CHLORIDE 0.9% 246 ML IV PRN (11:00)
[2019-02-17 11:01] LABS: TOTAL IRON BINDING CAPACITY 306 mcg/dL (250-450)
[2019-02-17 11:07] LABS: % IRON SATURATION 25 % (20-55); CREATINE KINASE, TOTAL 835 U/L (26-192); IRON LEVEL 76 mcg/dL (50-170)
[2019-02-17 11:17] LABS: ABSOLUTE RETICS # 0.07 x10^6/uL (0.5-2.5); RETICULOCYTE COUNT % 1.88 % (0.5-1.5)
[2019-02-17 11:26] LABS: RED BLOOD COUNT 3.69 x10^6/uL (3.82-5.3)
[2019-02-17 11:27] LABS: MEAN CORPUSCULAR HEMOGLOBIN 27.9 pg (27.0-34.8); MEAN CORPUSCULAR HGB CONC 31.8 g/dL (32.4-35.8); MEAN CORPUSCULAR VOLUME 87.9 fL (80-100); MEAN PLATELET VOLUME 9.3 fL (7.4-10.4); PLATELET COUNT 208 x10^3/uL (130-400); RED BLOOD COUNT 3.71 x10^6/uL (3.82-5.3); RED CELL DISTRIBUTION WIDTH 20.7 % (9.6-15.2)
[2019-02-17 11:35] LABS: MD YES
[2019-02-17] MEDS ORDERED: OMNIPAQUE 350 MG/ML, 100ML BOTTLE ONE (11:42)
[2019-02-17] MEDS ORDERED: LIDOCAINE 1%, 20ML ONE (11:45)
[2019-02-17 11:52] LABS: ANISOCYTOSIS 1+; BAND#(MANUAL) 1.65 x10^3/uL; BANDS%(MANUAL) 6 % (0-7); LYMPHS% (MANUAL) 24 % (22-44); METAMYELOCYTES# (MANUAL) 0.55 x10^3/uL (0-0); METAMYELOCYTES% (MANUAL) 2 % (0-1); MONOS#(MANUAL) 1.65 x10^3/uL (0.3-2.7); MONOS% (MANUAL) 6 % (2-9); NRBC % (MANUAL) 2 % (0-1); SEG#(MANUAL) 17.05 x10^3/uL (1.8-6.8); SEGS% (MANUAL) 62 % (42-75)
[2019-02-17 11:53] LABS: ECHINOCYTES 1+; POLYCHROMASIA 1+; SMUDGE CELLS 1+; TEAR DROPS 1+
[2019-02-17 11:54] LABS: <PLATELET ESTIMATE> ADEQUATE; BIZARRE PLATELETS 1+; LARGE PLATELETS 1+
[2019-02-17] MEDS: SODIUM BICARB 8.4%,50ML SYR. 75 MEQ in SODIUM CHLORIDE 0.45% 1,000 ML IV SCH ×2 (12:09→22:11)
[2019-02-17 12:14] LABS: MICROSCOPIC INDICATED
[2019-02-17 12:52] LABS: MEAN CORPUSCULAR HEMOGLOBIN 29.7 pg (27.0-34.8); MEAN CORPUSCULAR HGB CONC 32.8 g/dL (32.4-35.8); MEAN CORPUSCULAR VOLUME 90.7 fL (80-100); MEAN PLATELET VOLUME 8.7 fL (7.4-10.4); PLATELET COUNT 240 x10^3/uL (130-400); RED BLOOD COUNT 3.48 x10^6/uL (3.82-5.3); RED CELL DISTRIBUTION WIDTH 19.3 % (9.6-15.2)
[2019-02-17 12:53] LABS: MD YES
[2019-02-17 12:54] LABS: BAND#(MANUAL) 4.57 x10^3/uL; BANDS%(MANUAL) 18 % (0-7); LYMPH#(MANUAL) 3.81 x10^3/uL (1-3.4); LYMPHS% (MANUAL) 15 % (22-44); MONOS#(MANUAL) 0.76 x10^3/uL (0.3-2.7); MONOS% (MANUAL) 3 % (2-9); NRBC % (MANUAL) 4 % (0-1); SEG#(MANUAL) 16.26 x10^3/uL (1.8-6.8); SEGS% (MANUAL) 64 % (42-75)
[2019-02-17 12:55] LABS: ANISOCYTOSIS 1+; POLYCHROMASIA 1+
[2019-02-17 12:56] LABS: ECHINOCYTES 1+; SMUDGE CELLS 1+
[2019-02-17 12:57] LABS: <PLATELET ESTIMATE> ADEQUATE; LARGE PLATELETS 1+
[2019-02-17 12:58] LABS: BIZARRE PLATELETS 1+
[2019-02-17 13:35] LABS: INTERNATIONAL NORMALIZED RATIO 1.4 (0.93-1.1); PROTHROMBIN TIME 14.5 Seconds (9.6-11.5)
[2019-02-17] MEDS ORDERED: VISIPAQUE 270 MG/ML, 50ML BOTTLE ONE (13:45)
[2019-02-17 14:00] LABS: FIBRINOGEN 121 mg/dL (200-340); PARTIAL THROMBOPLASTIN TIME 72 Seconds (25-31)
[2019-02-17] MEDS: PANTOPRAZOLE 40 MG IV IV SCH (15:42)
[2019-02-17] MEDS: IRON SUCROSE COMPLEX 100MG/5ML IV SCH (15:42)
[2019-02-17 16:31] LABS: INTERNATIONAL NORMALIZED RATIO 1.87 (0.93-1.1); PROTHROMBIN TIME 19.2 Seconds (9.6-11.5)
[2019-02-17] MEDS: PROPOFOL 100 ML IV PRN (18:17)
[2019-02-17 20:47] LABS: ANION GAP 13 mmol/L (5-15); CALCIUM 6.4 mg/dL (8.5-10.1); CHLORIDE 106 mmol/L (98-107); CREATININE 2.27 mg/dL (0.55-1.02)
[2019-02-17 21:11] LABS: MD YES; MEAN CORPUSCULAR HEMOGLOBIN 29.6 pg (27.0-34.8); MEAN CORPUSCULAR HGB CONC 33.8 g/dL (32.4-35.8); MEAN CORPUSCULAR VOLUME 87.8 fL (80-100); MEAN PLATELET VOLUME 11.1 fL (7.4-10.4); PLATELET COUNT 118 x10^3/uL (130-400); RED BLOOD COUNT 3.98 x10^6/uL (3.82-5.3); RED CELL DISTRIBUTION WIDTH 17.2 % (9.6-15.2)
[2019-02-17 21:14] LABS: BAND#(MANUAL) 6.17 x10^3/uL; BANDS%(MANUAL) 21 % (0-7); INTERNATIONAL NORMALIZED RATIO 1.75 (0.93-1.1); LYMPH#(MANUAL) 1.76 x10^3/uL (1-3.4); LYMPHS% (MANUAL) 6 % (22-44); MONOS#(MANUAL) 0.29 x10^3/uL (0.3-2.7); MONOS% (MANUAL) 1 % (2-9); NRBC % (MANUAL) 2 % (0-1); SEG#(MANUAL) 21.17 x10^3/uL (1.8-6.8); SEGS% (MANUAL) 72 % (42-75)
[2019-02-17 21:15] LABS: ANISOCYTOSIS 1+
[2019-02-17 21:16] LABS: ECHINOCYTES 1+; POLYCHROMASIA 1+
[2019-02-17 21:17] LABS: OVALOCYTES 1+; TEAR DROPS 1+
[2019-02-17 21:18] LABS: <PLATELET ESTIMATE> DECREASED; BIZARRE PLATELETS 1+; LARGE PLATELETS 1+
[2019-02-17 21:19] LABS: SMUDGE CELLS 1+
[2019-02-17] MEDS ORDERED: DEXTROSE 50%, 50ML SYRINGE IVPush ONE (21:30)
[2019-02-18] VITALS (20 sets, daily range): BP systolic 108–155; BP diastolic 56–99
[2019-02-18 00:44] LABS: INTERNATIONAL NORMALIZED RATIO 1.62 (0.93-1.1); PROTHROMBIN TIME 16.7 Seconds (9.6-11.5)
[2019-02-18] MEDS: PROPOFOL 100 ML IV PRN ×6 (03:43→20:57)
[2019-02-18 04:55] LABS: ALANINE AMINOTRANSFERASE 618 U/L (12-78); ALBUMIN 1.2 g/dL (3.4-5.0); ANION GAP 11 mmol/L (5-15); CHLORIDE 105 mmol/L (98-107)
[2019-02-18 05:01] LABS: MEAN CORPUSCULAR HEMOGLOBIN 30.5 pg (27.0-34.8); MEAN CORPUSCULAR HGB CONC 34.5 g/dL (32.4-35.8); MEAN CORPUSCULAR VOLUME 88.6 fL (80-100); RED BLOOD COUNT 3.21 x10^6/uL (3.82-5.3); RED CELL DISTRIBUTION WIDTH 17.9 % (9.6-15.2)
[2019-02-18 05:17] LABS: ALKALINE PHOSPHATASE 158 U/L (45-117); BILIRUBIN,TOTAL 0.8 mg/dL (0.2-1.0); CREATININE 2.64 mg/dL (0.55-1.02); TOTAL PROTEIN 3.5 g/dL (6.4-8.2)
[2019-02-18 05:40] LABS: MD YES
[2019-02-18 05:58] LABS: MEAN PLATELET VOLUME 11.5 fL (7.4-10.4); PLATELET COUNT 120 x10^3/uL (130-400)
[2019-02-18 06:04] LABS: <PLATELET ESTIMATE> DECREASED; ANISOCYTOSIS 1+; BAND#(MANUAL) 17.48 x10^3/uL; BANDS%(MANUAL) 46 % (0-7); ECHINOCYTES 1+; LARGE PLATELETS 1+; LYMPHS% (MANUAL) 10 % (22-44); MONOS#(MANUAL) 1.52 x10^3/uL (0.3-2.7); MONOS% (MANUAL) 4 % (2-9); NRBC % (MANUAL) 4 % (0-1); OVALOCYTES 1+; POLYCHROMASIA 1+; SEGS% (MANUAL) 40 % (42-75); SMUDGE CELLS 1+; TEAR DROPS 1+
[2019-02-18 06:38] LABS: INTERNATIONAL NORMALIZED RATIO 1.66 (0.93-1.1); PROTHROMBIN TIME 17.1 Seconds (9.6-11.5)
[2019-02-18] MEDS ORDERED: CALCIUM CHLORIDE 13.6 MEQ in SODIUM CHLORIDE 0.9% 100 ML IV ONE (07:00)
[2019-02-18] MEDS ORDERED: DEXTROSE 50%, 50ML SYRINGE IVPush ONE (07:30)
[2019-02-18] MEDS: SODIUM BICARB 8.4%,50ML SYR. 150 MEQ in DEXTROSE 5% 1,000 ML IV SCH ×2 (07:48→19:29)
[2019-02-18] MEDS: LACTULOSE 20 GM/30 ML UDC PO SCH (09:34)
[2019-02-18] MEDS: PANTOPRAZOLE 40 MG IV IV SCH (09:34)
[2019-02-18] MEDS: PRENATAL VIT/IRON/FA 1 EACH TABLET PO SCH (09:36)
[2019-02-18] MEDS: ALBUMIN HUMAN 25% 100 ML IV SCH ×3 (10:26→21:20)
[2019-02-18] MEDS ORDERED: FUROSEMIDE 40 MG/4 ML IV ONE (10:30)
[2019-02-18] MEDS: IRON SUCROSE COMPLEX 100MG/5ML IV SCH (10:52)
[2019-02-18] MEDS: PHYTONADIONE 10 MG/ML, 1ML SQ SCH (13:32)
[2019-02-18] MEDS: CEFTRIAXONE PMX 1GM/50ML 50 ML IV SCH (13:32)
[2019-02-18] MEDS: METHYLNALTREXONE 12 MG/0.6 ML SQ SCH (16:16)
[2019-02-18] MEDS: FENTANYL PF 100 MCG/2ML IVPush PRN ×4 (16:16→21:50)
[2019-02-18] MEDS: LIDOCAINE-MPF 1%, 2ML ENDO PRN (17:45)
[2019-02-18 21:32] LABS: ANION GAP 10 mmol/L (5-15); CALCIUM 6.3 mg/dL (8.5-10.1); CHLORIDE 101 mmol/L (98-107); CREATININE 3.05 mg/dL (0.55-1.02)
[2019-02-18 21:33] LABS: ALBUMIN 1.9 g/dL (3.4-5.0)
[2019-02-18 21:42] LABS: ALKALINE PHOSPHATASE 155 U/L (45-117)
[2019-02-18] MEDS: LABETALOL 5MG/ML, 20ML IVPush PRN (21:43)
[2019-02-18 21:47] LABS: ALANINE AMINOTRANSFERASE 845 U/L (12-78)
[2019-02-18 21:48] LABS: TOTAL PROTEIN 3.9 g/dL (6.4-8.2)
[2019-02-18 22:18] LABS: MEAN CORPUSCULAR VOLUME 87.4 fL (80-100); MEAN PLATELET VOLUME 11.1 fL (7.4-10.4); PLATELET COUNT 100 x10^3/uL (130-400); RED BLOOD COUNT 2.61 x10^6/uL (3.82-5.3); RED CELL DISTRIBUTION WIDTH 15.9 % (9.6-15.2)
[2019-02-18 22:22] LABS: MEAN CORPUSCULAR HGB CONC 37.8 g/dL (32.4-35.8)
[2019-02-18 22:33] LABS: MD YES
[2019-02-18 22:39] LABS: BAND#(MANUAL) 1.04 x10^3/uL; BANDS%(MANUAL) 4 % (0-7); LYMPH#(MANUAL) 2.33 x10^3/uL (1-3.4); LYMPHS% (MANUAL) 9 % (22-44); NRBC % (MANUAL) 1 % (0-1)
[2019-02-18 22:40] LABS: POLYCHROMASIA 1+; SEGS% (MANUAL) 87 % (42-75)
[2019-02-18 22:41] LABS: ANISOCYTOSIS 2+; OVALOCYTES 1+
[2019-02-18 22:42] LABS: <PLATELET ESTIMATE> DECREASED; BIZARRE PLATELETS 1+; LARGE PLATELETS 1+; SMUDGE CELLS 1+; TEAR DROPS 1+
[2019-02-19] VITALS (32 sets, daily range): BP systolic 110–160; BP diastolic 70–98
[2019-02-19] MEDS: FENTANYL PF 100 MCG/2ML IVPush PRN ×2 (00:24→03:08)
[2019-02-19] MEDS ORDERED: PROPOFOL 100 ML IV ONE ×3 (00:55→06:44)
[2019-02-19] MEDS: PROPOFOL 100 ML IV PRN ×7 (01:01→20:27)
[2019-02-19] MEDS: ALBUMIN HUMAN 25% 100 ML IV SCH ×4 (02:39→22:39)
[2019-02-19 04:48] LABS: ANION GAP 11 mmol/L (5-15); CHLORIDE 99 mmol/L (98-107); CREATININE 3.15 mg/dL (0.55-1.02)
[2019-02-19 06:11] LABS: MEAN CORPUSCULAR HEMOGLOBIN 30.9 pg (27.0-34.8); MEAN CORPUSCULAR HGB CONC 35.8 g/dL (32.4-35.8); MEAN CORPUSCULAR VOLUME 86.2 fL (80-100); RED BLOOD COUNT 2.52 x10^6/uL (3.82-5.3); RED CELL DISTRIBUTION WIDTH 15.7 % (9.6-15.2)
[2019-02-19 06:24] LABS: MD YES; MEAN PLATELET VOLUME 10.1 fL (7.4-10.4)
[2019-02-19 06:26] LABS: PLATELET COUNT 49 x10^3/uL (130-400)
[2019-02-19 06:29] LABS: BAND#(MANUAL) 2.72 x10^3/uL; BANDS%(MANUAL) 14 % (0-7); LYMPH#(MANUAL) 1.16 x10^3/uL (1-3.4); LYMPHS% (MANUAL) 6 % (22-44); NRBC % (MANUAL) 6 % (0-1); SEG#(MANUAL) 15.52 x10^3/uL (1.8-6.8)
[2019-02-19 06:30] LABS: <PLATELET ESTIMATE> DECREASED; ANISOCYTOSIS 1+; OVALOCYTES 1+; POLYCHROMASIA 1+; SEGS% (MANUAL) 80 % (42-75); SMUDGE CELLS 1+
[2019-02-19 06:32] LABS: LARGE PLATELETS 1+
[2019-02-19 06:34] LABS: ECHINOCYTES 1+
[2019-02-19] MEDS ORDERED: CALCIUM CHLORIDE 13.6 MEQ in SODIUM CHLORIDE 0.9% 100 ML IV ONE (07:00)
[2019-02-19] MEDS: SODIUM BICARB 8.4%,50ML SYR. 150 MEQ in DEXTROSE 5% 1,000 ML IV SCH ×2 (07:03→20:28)
[2019-02-19] MEDS ORDERED: BISACODYL 10 MG SUPP PR PRN (08:00)
[2019-02-19 08:39] LABS: BILIRUBIN,TOTAL 2.6 mg/dL (0.2-1.0)
[2019-02-19 08:40] LABS: BILIRUBIN, DIRECT 0.9 mg/dL (0.1-0.2); BILIRUBIN,INDIRECT 1.7 mg/dL (0.0-2.0)
[2019-02-19] MEDS: PANTOPRAZOLE 40 MG IV IV SCH (09:28)
[2019-02-19] MEDS: LACTULOSE 20 GM/30 ML UDC PO SCH (09:29)
[2019-02-19] MEDS: PRENATAL VIT/IRON/FA 1 EACH TABLET PO SCH (09:36)
[2019-02-19] MEDS: PHYTONADIONE 10 MG/ML, 1ML SQ SCH (09:36)
[2019-02-19] MEDS: IRON SUCROSE COMPLEX 100MG/5ML IV SCH (10:08)
[2019-02-19] MEDS ORDERED: FUROSEMIDE 40 MG/4 ML IV ONE ×2 (11:00→17:00)
[2019-02-19] MEDS: LABETALOL 5MG/ML, 20ML IVPush PRN ×2 (13:15→23:37)
[2019-02-19] MEDS: CEFTRIAXONE PMX 1GM/50ML 50 ML IV SCH (14:18)
[2019-02-19 14:34] LABS: MEAN CORPUSCULAR HEMOGLOBIN 30.5 pg (27.0-34.8); MEAN CORPUSCULAR HGB CONC 35.2 g/dL (32.4-35.8); MEAN CORPUSCULAR VOLUME 86.6 fL (80-100); MEAN PLATELET VOLUME 7.8 fL (7.4-10.4); PLATELET COUNT 131 x10^3/uL (130-400); RED BLOOD COUNT 2.17 x10^6/uL (3.82-5.3); RED CELL DISTRIBUTION WIDTH 15.8 % (9.6-15.2)
[2019-02-19 14:35] LABS: MD YES
[2019-02-19 15:49] LABS: BAND#(MANUAL) 3.47 x10^3/uL; BANDS%(MANUAL) 23 % (0-7); LYMPH#(MANUAL) 2.27 x10^3/uL (1-3.4); LYMPHS% (MANUAL) 15 % (22-44); METAMYELOCYTES# (MANUAL) 0.15 x10^3/uL (0-0); METAMYELOCYTES% (MANUAL) 1 % (0-1); NRBC % (MANUAL) 6 % (0-1); SEG#(MANUAL) 9.21 x10^3/uL (1.8-6.8); SEGS% (MANUAL) 61 % (42-75)
[2019-02-19 15:52] LABS: ANISOCYTOSIS 1+
[2019-02-19 15:56] LABS: POLYCHROMASIA 1+; SMUDGE CELLS 1+
[2019-02-19 15:57] LABS: OVALOCYTES 1+
[2019-02-19 15:58] LABS: <PLATELET ESTIMATE> ADEQUATE; <PLT MORPHOLOGY> NORMAL PLT MORPH
[2019-02-19 17:49] LABS: HEMOGRAM NOTE RECHECKED
[2019-02-20] VITALS (10 sets, daily range): BP systolic 137–147; BP diastolic 79–90
[2019-02-20] MEDS: FENTANYL PF 100 MCG/2ML IVPush PRN (00:06)
[2019-02-20] MEDS: PROPOFOL 100 ML IV PRN ×5 (00:07→13:50)
[2019-02-20] MEDS: ALBUMIN HUMAN 25% 100 ML IV SCH ×4 (02:45→21:16)
[2019-02-20 03:53] LABS: ALANINE AMINOTRANSFERASE 498 U/L (12-78); ALBUMIN 3.1 g/dL (3.4-5.0); ANION GAP 9 mmol/L (5-15); CALCIUM 6.8 mg/dL (8.5-10.1); CHLORIDE 96 mmol/L (98-107); CREATININE 3.51 mg/dL (0.55-1.02); TRIGLYCERIDES 460 mg/dL (50-200)
[2019-02-20 04:00] LABS: ALKALINE PHOSPHATASE 102 U/L (45-117); BILIRUBIN,TOTAL 2.9 mg/dL (0.2-1.0)
[2019-02-20 04:24] LABS: MEAN CORPUSCULAR HEMOGLOBIN 30.4 pg (27.0-34.8); MEAN CORPUSCULAR HGB CONC 34.5 g/dL (32.4-35.8); MEAN PLATELET VOLUME 8.9 fL (7.4-10.4); PLATELET COUNT 73 x10^3/uL (130-400); RED BLOOD COUNT 2.47 x10^6/uL (3.82-5.3); RED CELL DISTRIBUTION WIDTH 14.9 % (9.6-15.2)
[2019-02-20 04:25] LABS: MD YES
[2019-02-20 04:28] LABS: BAND#(MANUAL) 0.71 x10^3/uL; BANDS%(MANUAL) 6 % (0-7); LYMPH#(MANUAL) 1.67 x10^3/uL (1-3.4); LYMPHS% (MANUAL) 14 % (22-44); MONOS#(MANUAL) 0.24 x10^3/uL (0.3-2.7); MONOS% (MANUAL) 2 % (2-9); MYELOCYTES# (MANUAL) 0.12 x10^3/uL (0-0); MYELOCYTES% (MANUAL) 1 % (0-0); NRBC % (MANUAL) 9 % (0-1); SEG#(MANUAL) 9.16 x10^3/uL (1.8-6.8); SEGS% (MANUAL) 77 % (42-75)
[2019-02-20 04:29] LABS: ANISOCYTOSIS 1+; POLYCHROMASIA 1+
[2019-02-20 04:30] LABS: <PLATELET ESTIMATE> DECREASED; OVALOCYTES 1+
[2019-02-20 04:31] LABS: <PLT MORPHOLOGY> NORMAL PLT MORPH; SMUDGE CELLS 1+
[2019-02-20] MEDS ORDERED: FENTANYL PF 2,500 MCG in SODIUM CHLORIDE 0.9% 200 ML IV PRN (08:30)
[2019-02-20] MEDS: LACTULOSE 20 GM/30 ML UDC PO SCH (09:17)
[2019-02-20] MEDS: POTASSIUM CHLORIDE 10% 40 MEQ/30 ML UDC PO SCH ×2 (09:17→21:16)
[2019-02-20] MEDS: PRENATAL VIT/IRON/FA 1 EACH TABLET PO SCH (09:17)
[2019-02-20] MEDS: PHYTONADIONE 10 MG/ML, 1ML SQ SCH (09:51)
[2019-02-20] MEDS: PANTOPRAZOLE 40 MG IV IV SCH (09:51)
[2019-02-20] MEDS: IRON SUCROSE COMPLEX 100MG/5ML IV SCH (10:32)
[2019-02-20 13:45] LABS: MEAN CORPUSCULAR HEMOGLOBIN 30.8 pg (27.0-34.8); MEAN CORPUSCULAR HGB CONC 34.9 g/dL (32.4-35.8); MEAN CORPUSCULAR VOLUME 88.3 fL (80-100); RED BLOOD COUNT 2.71 x10^6/uL (3.82-5.3); RED CELL DISTRIBUTION WIDTH 15.6 % (9.6-15.2)
[2019-02-20] MEDS: CEFTRIAXONE PMX 1GM/50ML 50 ML IV SCH (13:58)
[2019-02-20 13:59] LABS: D-DIMER 6.78 ug/mlFEU (0.00-0.52)
[2019-02-20 14:08] LABS: MEAN PLATELET VOLUME 8.5 fL (7.4-10.4); PLATELET COUNT 90 x10^3/uL (130-400)
[2019-02-20 14:09] LABS: ALANINE AMINOTRANSFERASE 443 U/L (12-78); ALBUMIN 3.1 g/dL (3.4-5.0); ALKALINE PHOSPHATASE 110 U/L (45-117); ANION GAP 10 mmol/L (5-15); BILIRUBIN, DIRECT 2.1 mg/dL (0.1-0.2); BILIRUBIN,INDIRECT 1.1 mg/dL (0.0-2.0); BILIRUBIN,TOTAL 3.2 mg/dL (0.2-1.0); CALCIUM 6.7 mg/dL (8.5-10.1); CHLORIDE 97 mmol/L (98-107); CREATININE 3.62 mg/dL (0.55-1.02); MD YES; TOTAL PROTEIN 5.2 g/dL (6.4-8.2)
[2019-02-20 14:15] LABS: BAND#(MANUAL) 0.44 x10^3/uL; BANDS%(MANUAL) 3 % (0-7); LYMPH#(MANUAL) 1.31 x10^3/uL (1-3.4); LYMPHS% (MANUAL) 9 % (22-44); METAMYELOCYTES# (MANUAL) 0.15 x10^3/uL (0-0); METAMYELOCYTES% (MANUAL) 1 % (0-1); MONOS#(MANUAL) 0.15 x10^3/uL (0.3-2.7); MONOS% (MANUAL) 1 % (2-9); MYELOCYTES# (MANUAL) 0.29 x10^3/uL (0-0); MYELOCYTES% (MANUAL) 2 % (0-0); REACTIVE LYMPHS # (MANUAL) 0.15 x10^3/uL (0-0); REACTIVE LYMPHS % (MANUAL) 1 % (0-0); SEG#(MANUAL) 12.04 x10^3/uL (1.8-6.8); SEGS% (MANUAL) 83 % (42-75)
[2019-02-20 14:17] LABS: NRBC % (MANUAL) 8 % (0-1)
[2019-02-20 14:18] LABS: ANISOCYTOSIS 1+; POLYCHROMASIA 1+
[2019-02-20 14:19] LABS: <PLATELET ESTIMATE> DECREASED; <PLT MORPHOLOGY> NORMAL PLT MORPH
[2019-02-20 14:40] LABS: PROTHROMBIN TIME 10.3 Seconds (9.6-11.5)
[2019-02-20 14:41] LABS: INTERNATIONAL NORMALIZED RATIO 0.98 (0.93-1.1)
[2019-02-20] MEDS: FUROSEMIDE 40 MG/4 ML IV SCH (17:36)
[2019-02-20] MEDS: METHYLNALTREXONE 12 MG/0.6 ML SQ SCH (18:54)
[2019-02-20 20:32] LABS: INTERNATIONAL NORMALIZED RATIO 0.93 (0.93-1.1); PROTHROMBIN TIME 9.8 Seconds (9.6-11.5)
[2019-02-20 20:37] LABS: ALANINE AMINOTRANSFERASE 429 U/L (12-78); ALBUMIN 3.1 g/dL (3.4-5.0); ANION GAP 9 mmol/L (5-15); CHLORIDE 98 mmol/L (98-107); CREATININE 3.56 mg/dL (0.55-1.02)
[2019-02-20 20:39] LABS: ALKALINE PHOSPHATASE 111 U/L (45-117); BILIRUBIN,TOTAL 3.4 mg/dL (0.2-1.0); TOTAL PROTEIN 5.3 g/dL (6.4-8.2)
[2019-02-20 20:47] LABS: MEAN CORPUSCULAR HEMOGLOBIN 30.8 pg (27.0-34.8); MEAN CORPUSCULAR HGB CONC 34.6 g/dL (32.4-35.8); MEAN CORPUSCULAR VOLUME 89.1 fL (80-100); RED BLOOD COUNT 2.79 x10^6/uL (3.82-5.3)
[2019-02-20 20:53] LABS: MD YES
[2019-02-20 20:57] LABS: BAND#(MANUAL) 0.46 x10^3/uL; BANDS%(MANUAL) 3 % (0-7); LYMPH#(MANUAL) 1.39 x10^3/uL (1-3.4); LYMPHS% (MANUAL) 9 % (22-44); METAMYELOCYTES# (MANUAL) 0.46 x10^3/uL (0-0); METAMYELOCYTES% (MANUAL) 3 % (0-1); MONOS#(MANUAL) 0.15 x10^3/uL (0.3-2.7); MONOS% (MANUAL) 1 % (2-9); MYELOCYTES# (MANUAL) 0.15 x10^3/uL (0-0); MYELOCYTES% (MANUAL) 1 % (0-0); NRBC % (MANUAL) 4 % (0-1); SEG#(MANUAL) 12.78 x10^3/uL (1.8-6.8); SEGS% (MANUAL) 83 % (42-75)
[2019-02-20 21:00] LABS: MEAN PLATELET VOLUME 9.2 fL (7.4-10.4); PLATELET COUNT 80 x10^3/uL (130-400)
[2019-02-20 21:01] LABS: ANISOCYTOSIS 1+; POLYCHROMASIA 1+
[2019-02-20 21:02] LABS: <PLATELET ESTIMATE> DECREASED; <PLT MORPHOLOGY> NORMAL PLT MORPH
[2019-02-21] MEDS: PROPOFOL 100 ML IV PRN ×7 (00:14→21:30)
[2019-02-21 02:12] LABS: INTERNATIONAL NORMALIZED RATIO 0.95 (0.93-1.1)
[2019-02-21 02:14] LABS: ALANINE AMINOTRANSFERASE 368 U/L (12-78); ALBUMIN 3.1 g/dL (3.4-5.0); ANION GAP 9 mmol/L (5-15); CHLORIDE 98 mmol/L (98-107); CREATININE 3.52 mg/dL (0.55-1.02)
[2019-02-21 02:16] LABS: ALKALINE PHOSPHATASE 100 U/L (45-117); BILIRUBIN,TOTAL 3.5 mg/dL (0.2-1.0); TOTAL PROTEIN 5.3 g/dL (6.4-8.2)
[2019-02-21] MEDS: LABETALOL 5MG/ML, 20ML IVPush PRN ×4 (02:23→21:55)
[2019-02-21 02:25] LABS: MEAN CORPUSCULAR HEMOGLOBIN 30.9 pg (27.0-34.8); MEAN CORPUSCULAR VOLUME 88.5 fL (80-100); RED BLOOD COUNT 2.61 x10^6/uL (3.82-5.3); RED CELL DISTRIBUTION WIDTH 15.8 % (9.6-15.2)
[2019-02-21 02:29] LABS: MD YES
[2019-02-21 02:34] LABS: ANISOCYTOSIS 1+; BAND#(MANUAL) 0.28 x10^3/uL; BANDS%(MANUAL) 2 % (0-7); LYMPH#(MANUAL) 1.26 x10^3/uL (1-3.4); LYMPHS% (MANUAL) 9 % (22-44); METAMYELOCYTES# (MANUAL) 0.14 x10^3/uL (0-0); METAMYELOCYTES% (MANUAL) 1 % (0-1); MONOS#(MANUAL) 0.14 x10^3/uL (0.3-2.7); MONOS% (MANUAL) 1 % (2-9); MYELOCYTES# (MANUAL) 0.14 x10^3/uL (0-0); MYELOCYTES% (MANUAL) 1 % (0-0); NRBC % (MANUAL) 5 % (0-1); POLYCHROMASIA 1+; REACTIVE LYMPHS # (MANUAL) 0.28 x10^3/uL (0-0); REACTIVE LYMPHS % (MANUAL) 2 % (0-0); SEG#(MANUAL) 11.76 x10^3/uL (1.8-6.8); SEGS% (MANUAL) 84 % (42-75)
[2019-02-21 02:38] LABS: MEAN PLATELET VOLUME 9.6 fL (7.4-10.4); PLATELET COUNT 70 x10^3/uL (130-400)
[2019-02-21 02:40] LABS: <PLATELET ESTIMATE> DECREASED
[2019-02-21 02:41] LABS: <PLT MORPHOLOGY> NORMAL PLT MORPH
[2019-02-21] MEDS: FENTANYL PF 100 MCG/2ML IVPush PRN (03:21)
[2019-02-21] MEDS: ALBUMIN HUMAN 25% 100 ML IV SCH ×3 (03:21→21:30)
[2019-02-21 05:11] LABS: FIO2 100 %
[2019-02-21] MEDS ORDERED: CALCIUM CHLORIDE 13.6 MEQ in SODIUM CHLORIDE 0.9% 100 ML IV ONE (07:00)
[2019-02-21] MEDS: LACTULOSE 20 GM/30 ML UDC PO SCH (07:59)
[2019-02-21] MEDS: FUROSEMIDE 40 MG/4 ML IV SCH ×4 (08:23→21:30)
[2019-02-21] MEDS: PANTOPRAZOLE 40 MG IV IV SCH (08:23)
[2019-02-21] MEDS: PRENATAL VIT/IRON/FA 1 EACH TABLET PO SCH (08:24)
[2019-02-21] MEDS: POTASSIUM CHLORIDE 10% 40 MEQ/30 ML UDC PO SCH ×3 (08:24→21:30)
[2019-02-21] MEDS: KSCALE TO 4.0 IV SCH ×3 (09:00→21:59)
[2019-02-21] MEDS ORDERED: METHYLNALTREXONE 12 MG/0.6 ML SYR SQ SCH (09:00)
[2019-02-21 09:03] LABS: ALANINE AMINOTRANSFERASE 316 U/L (12-78); ALBUMIN 3.3 g/dL (3.4-5.0); ANION GAP 10 mmol/L (5-15); CALCIUM 7.1 mg/dL (8.5-10.1); CHLORIDE 98 mmol/L (98-107); INTERNATIONAL NORMALIZED RATIO 0.93 (0.93-1.1); PROTHROMBIN TIME 9.8 Seconds (9.6-11.5)
[2019-02-21 09:06] LABS: ALKALINE PHOSPHATASE 104 U/L (45-117); BILIRUBIN,TOTAL 3.6 mg/dL (0.2-1.0); CREATININE 3.44 mg/dL (0.55-1.02); TOTAL PROTEIN 5.3 g/dL (6.4-8.2)
[2019-02-21 09:22] LABS: MEAN CORPUSCULAR HEMOGLOBIN 30.1 pg (27.0-34.8); MEAN CORPUSCULAR HGB CONC 34.3 g/dL (32.4-35.8); MEAN CORPUSCULAR VOLUME 87.7 fL (80-100); RED BLOOD COUNT 2.58 x10^6/uL (3.82-5.3); RED CELL DISTRIBUTION WIDTH 15.6 % (9.6-15.2)
[2019-02-21 09:23] LABS: MD YES
[2019-02-21 09:25] LABS: ANISOCYTOSIS 1+; BAND#(MANUAL) 0.79 x10^3/uL; BANDS%(MANUAL) 6 % (0-7); LYMPH#(MANUAL) 1.31 x10^3/uL (1-3.4); LYMPHS% (MANUAL) 10 % (22-44); METAMYELOCYTES# (MANUAL) 0.13 x10^3/uL (0-0); METAMYELOCYTES% (MANUAL) 1 % (0-1); MONOS#(MANUAL) 0.52 x10^3/uL (0.3-2.7); MONOS% (MANUAL) 4 % (2-9); MYELOCYTES# (MANUAL) 0.13 x10^3/uL (0-0); MYELOCYTES% (MANUAL) 1 % (0-0); NRBC % (MANUAL) 2 % (0-1); POLYCHROMASIA 1+; SEG#(MANUAL) 10.22 x10^3/uL (1.8-6.8); SEGS% (MANUAL) 78 % (42-75)
[2019-02-21 09:30] LABS: <PLATELET ESTIMATE> DECREASED; MEAN PLATELET VOLUME 10.1 fL (7.4-10.4); PLATELET COUNT 54 x10^3/uL (130-400)
[2019-02-21] MEDS: METOLAZONE 5 MG TABLET PO SCH ×2 (09:30→21:31)
[2019-02-21] MEDS: IRON SUCROSE COMPLEX 100MG/5ML IV SCH (09:30)
[2019-02-21] MEDS ORDERED: POTASSIUM CHLORIDE 30 MEQ in SODIUM CHLORIDE 0.9% 100 ML IV ONE (09:30)
[2019-02-21 09:31] LABS: <PLT MORPHOLOGY> NORMAL PLT MORPH
[2019-02-21] MEDS: PIPERACILLIN/TAZO 2.25 GM in NS 50 ML IV SCH ×2 (09:36→16:58)
[2019-02-21] MEDS: LINEZOLID PMX 600MG/300ML 300 ML IV SCH ×2 (10:34→22:26)
[2019-02-21 11:00] VITALS: BP 135/85
[2019-02-21 11:15] VITALS: BP 140/84
[2019-02-21 11:35] VITALS: BP 141/85
[2019-02-21 12:30] VITALS: BP 138/82
[2019-02-21 14:28] LABS: ALANINE AMINOTRANSFERASE 298 U/L (12-78); ALBUMIN 3.1 g/dL (3.4-5.0); ANION GAP 10 mmol/L (5-15); CALCIUM 7.7 mg/dL (8.5-10.1); CHLORIDE 98 mmol/L (98-107); CREATININE 3.36 mg/dL (0.55-1.02)
[2019-02-21 14:30] LABS: ALKALINE PHOSPHATASE 110 U/L (45-117); BILIRUBIN,TOTAL 3.5 mg/dL (0.2-1.0); TOTAL PROTEIN 5.5 g/dL (6.4-8.2)
[2019-02-21 14:32] LABS: MD YES; MEAN CORPUSCULAR HGB CONC 34.8 g/dL (32.4-35.8); MEAN CORPUSCULAR VOLUME 89.2 fL (80-100); RED BLOOD COUNT 2.63 x10^6/uL (3.82-5.3); RED CELL DISTRIBUTION WIDTH 16.1 % (9.6-15.2)
[2019-02-21 14:43] LABS: INTERNATIONAL NORMALIZED RATIO 0.92 (0.93-1.1); PROTHROMBIN TIME 9.7 Seconds (9.6-11.5)
[2019-02-21 14:44] LABS: MEAN PLATELET VOLUME 10.3 fL (7.4-10.4); PLATELET COUNT 65 x10^3/uL (130-400)
[2019-02-21 14:50] LABS: BANDS%(MANUAL) 10 % (0-7); LYMPHS% (MANUAL) 12 % (22-44); METAMYELOCYTES# (MANUAL) 0.15 x10^3/uL (0-0); METAMYELOCYTES% (MANUAL) 1 % (0-1); MONOS#(MANUAL) 0.15 x10^3/uL (0.3-2.7); MONOS% (MANUAL) 1 % (2-9); MYELOCYTES# (MANUAL) 0.15 x10^3/uL (0-0); MYELOCYTES% (MANUAL) 1 % (0-0); NRBC % (MANUAL) 2 % (0-1); SEG#(MANUAL) 11.25 x10^3/uL (1.8-6.8); SEGS% (MANUAL) 75 % (42-75)
[2019-02-21 14:51] LABS: <PLATELET ESTIMATE> DECREASED; <PLT MORPHOLOGY> NORMAL PLT MORPH; ANISOCYTOSIS 1+; HYPOCHROMIA 1+; POLYCHROMASIA 1+
[2019-02-21] MEDS ORDERED: POTASSIUM CHLORIDE PMX 100 ML IVPB ONE ×2 (15:00→22:30)
[2019-02-21] MEDS: IPRATROPIUM 0.5 MG/2.5 ML INHA NPPB SCH ×2 (18:50→23:20)
[2019-02-21 21:19] LABS: MEAN CORPUSCULAR HEMOGLOBIN 30.8 pg (27.0-34.8); MEAN CORPUSCULAR HGB CONC 34.4 g/dL (32.4-35.8); MEAN CORPUSCULAR VOLUME 89.7 fL (80-100); MEAN PLATELET VOLUME 10.6 fL (7.4-10.4); PLATELET COUNT 54 x10^3/uL (130-400); RED BLOOD COUNT 2.58 x10^6/uL (3.82-5.3); RED CELL DISTRIBUTION WIDTH 16.2 % (9.6-15.2)
[2019-02-21 21:23] LABS: INTERNATIONAL NORMALIZED RATIO 0.92 (0.93-1.1); PROTHROMBIN TIME 9.7 Seconds (9.6-11.5)
[2019-02-21 21:25] LABS: ALANINE AMINOTRANSFERASE 237 U/L (12-78); ALBUMIN 3.2 g/dL (3.4-5.0); ANION GAP 7 mmol/L (5-15); CHLORIDE 99 mmol/L (98-107); CREATININE 3.25 mg/dL (0.55-1.02)
[2019-02-21 21:27] LABS: MD YES
[2019-02-21 21:28] LABS: ALKALINE PHOSPHATASE 107 U/L (45-117); BILIRUBIN,TOTAL 3.8 mg/dL (0.2-1.0); TOTAL PROTEIN 5.6 g/dL (6.4-8.2)
[2019-02-21 21:31] LABS: ANISOCYTOSIS 1+; BAND#(MANUAL) 0.69 x10^3/uL; BANDS%(MANUAL) 5 % (0-7); HYPOCHROMIA 1+; LYMPH#(MANUAL) 1.38 x10^3/uL (1-3.4); LYMPHS% (MANUAL) 10 % (22-44); METAMYELOCYTES# (MANUAL) 0.28 x10^3/uL (0-0); METAMYELOCYTES% (MANUAL) 2 % (0-1); MONOS#(MANUAL) 0.28 x10^3/uL (0.3-2.7); MONOS% (MANUAL) 2 % (2-9); NRBC % (MANUAL) 5 % (0-1); POLYCHROMASIA 1+; SEG#(MANUAL) 11.18 x10^3/uL (1.8-6.8); SEGS% (MANUAL) 81 % (42-75)
[2019-02-21 21:32] LABS: <PLATELET ESTIMATE> DECREASED; <PLT MORPHOLOGY> NORMAL PLT MORPH; BASOPHILLIC STIPPLING 1+
[2019-02-21] MEDS: MORPHINE SULFATE 4 MG/ML, 1ML IVPush PRN (23:31)
[2019-02-21] MEDS: LIDOCAINE-MPF 1%, 2ML ENDO PRN (23:31)
[2019-02-22] MEDS: PIPERACILLIN/TAZO 2.25 GM in NS 50 ML IV SCH ×4 (01:30→20:35)
[2019-02-22] MEDS: LIDOCAINE-MPF 1%, 2ML ENDO PRN ×5 (03:00→23:40)
[2019-02-22] MEDS: KSCALE TO 4.0 IV SCH ×4 (03:00→21:00)
[2019-02-22] MEDS: IPRATROPIUM 0.5 MG/2.5 ML INHA NPPB SCH ×6 (03:00→23:40)
[2019-02-22 03:15] LABS: MEAN CORPUSCULAR HEMOGLOBIN 30.8 pg (27.0-34.8); MEAN CORPUSCULAR HGB CONC 34.2 g/dL (32.4-35.8); MEAN CORPUSCULAR VOLUME 90.2 fL (80-100); RED BLOOD COUNT 2.47 x10^6/uL (3.82-5.3); RED CELL DISTRIBUTION WIDTH 16.1 % (9.6-15.2)
[2019-02-22 03:17] LABS: PLATELET COUNT 46 x10^3/uL (130-400)
[2019-02-22 03:23] LABS: ALANINE AMINOTRANSFERASE 206 U/L (12-78); ALBUMIN 3.3 g/dL (3.4-5.0); ANION GAP 6 mmol/L (5-15); CALCIUM 8.2 mg/dL (8.5-10.1); CHLORIDE 99 mmol/L (98-107); CREATININE 3.13 mg/dL (0.55-1.02)
[2019-02-22 03:25] LABS: ALKALINE PHOSPHATASE 105 U/L (45-117); BILIRUBIN,TOTAL 3.9 mg/dL (0.2-1.0); TOTAL PROTEIN 5.7 g/dL (6.4-8.2)
[2019-02-22 03:45] LABS: INTERNATIONAL NORMALIZED RATIO 0.92 (0.93-1.1); PROTHROMBIN TIME 9.7 Seconds (9.6-11.5)
[2019-02-22 03:52] LABS: MD YES
[2019-02-22 03:55] LABS: BAND#(MANUAL) 0.38 x10^3/uL; BANDS%(MANUAL) 3 % (0-7); LYMPH#(MANUAL) 2.25 x10^3/uL (1-3.4); LYMPHS% (MANUAL) 18 % (22-44); MONOS#(MANUAL) 0.63 x10^3/uL (0.3-2.7); MONOS% (MANUAL) 5 % (2-9); NRBC % (MANUAL) 4 % (0-1); SEG#(MANUAL) 9.25 x10^3/uL (1.8-6.8); SEGS% (MANUAL) 74 % (42-75)
[2019-02-22 03:56] LABS: <PLATELET ESTIMATE> DECREASED; ANISOCYTOSIS 1+; BASOPHILLIC STIPPLING 1+; HYPOCHROMIA 1+; LARGE PLATELETS 1+; POLYCHROMASIA 1+
[2019-02-22] MEDS: PROPOFOL 100 ML IV PRN (05:03)
[2019-02-22] MEDS ORDERED: POTASSIUM CHLORIDE PMX 100 ML IV ONE ×3 (05:30→17:00)
[2019-02-22] MEDS: FUROSEMIDE 40 MG/4 ML IV SCH ×2 (09:01→16:07)
[2019-02-22] MEDS: METOLAZONE 5 MG TABLET PO SCH ×2 (09:02→20:43)
[2019-02-22] MEDS: PANTOPRAZOLE 40 MG IV IV SCH (09:02)
[2019-02-22] MEDS: LACTULOSE 20 GM/30 ML UDC PO SCH (09:02)
[2019-02-22] MEDS: PRENATAL VIT/IRON/FA 1 EACH TABLET PO SCH (09:02)
[2019-02-22] MEDS: DEXMEDETOMIDINE 200 MCG in SODIUM CHLORIDE 0.9% 48 ML IV PRN ×3 (09:03→22:36)
[2019-02-22 09:30] LABS: ALANINE AMINOTRANSFERASE 196 U/L (12-78); ALBUMIN 3.2 g/dL (3.4-5.0); ANION GAP 7 mmol/L (5-15); CALCIUM 8.2 mg/dL (8.5-10.1); CHLORIDE 98 mmol/L (98-107)
[2019-02-22 09:32] LABS: ALKALINE PHOSPHATASE 116 U/L (45-117); TOTAL PROTEIN 5.8 g/dL (6.4-8.2)
[2019-02-22 09:59] LABS: MEAN CORPUSCULAR HEMOGLOBIN 30.5 pg (27.0-34.8); MEAN CORPUSCULAR HGB CONC 34.2 g/dL (32.4-35.8); MEAN CORPUSCULAR VOLUME 89.1 fL (80-100); MEAN PLATELET VOLUME 10.9 fL (7.4-10.4); RED BLOOD COUNT 2.63 x10^6/uL (3.82-5.3); RED CELL DISTRIBUTION WIDTH 15.9 % (9.6-15.2)
[2019-02-22 10:00] LABS: MD YES; PLATELET COUNT 40 x10^3/uL (130-400)
[2019-02-22 10:04] LABS: BAND#(MANUAL) 0.77 x10^3/uL; BANDS%(MANUAL) 6 % (0-7); LYMPH#(MANUAL) 2.56 x10^3/uL (1-3.4); LYMPHS% (MANUAL) 20 % (22-44); METAMYELOCYTES# (MANUAL) 0.38 x10^3/uL (0-0); METAMYELOCYTES% (MANUAL) 3 % (0-1); MONOS#(MANUAL) 0.51 x10^3/uL (0.3-2.7); MONOS% (MANUAL) 4 % (2-9); NRBC % (MANUAL) 5 % (0-1); SEG#(MANUAL) 8.58 x10^3/uL (1.8-6.8); SEGS% (MANUAL) 67 % (42-75)
[2019-02-22 10:06] LABS: ANISOCYTOSIS 2+
[2019-02-22 10:15] LABS: <PLATELET ESTIMATE> DECREASED; <PLT MORPHOLOGY> NORMAL PLT MORPH; OVALOCYTES 1+; STOMATOCYTES 1+
[2019-02-22 10:21] LABS: INTERNATIONAL NORMALIZED RATIO 0.89 (0.93-1.1); PROTHROMBIN TIME 9.4 Seconds (9.6-11.5)
[2019-02-22] MEDS: LINEZOLID PMX 600MG/300ML 300 ML IV SCH ×2 (10:21→21:51)
[2019-02-22] MEDS: LABETALOL 5MG/ML, 20ML IVPush PRN ×2 (10:30→21:05)
[2019-02-22] MEDS: FENTANYL PF 100 MCG/2ML IVPush PRN ×3 (10:54→23:09)
[2019-02-22] MEDS: ALBUMIN HUMAN 25% 100 ML IV SCH (15:08)
[2019-02-22] MEDS: FENTANYL PF 2,500 MCG in SODIUM CHLORIDE 0.9% 200 ML IV PRN (15:27)
[2019-02-22 15:35] LABS: INTERNATIONAL NORMALIZED RATIO 0.91 (0.93-1.1); PROTHROMBIN TIME 9.6 Seconds (9.6-11.5)
[2019-02-22 15:38] LABS: ALBUMIN 3.2 g/dL (3.4-5.0); ANION GAP 7 mmol/L (5-15); CALCIUM 8.7 mg/dL (8.5-10.1); CHLORIDE 97 mmol/L (98-107); MEAN CORPUSCULAR HEMOGLOBIN 30.8 pg (27.0-34.8); MEAN CORPUSCULAR HGB CONC 33.8 g/dL (32.4-35.8); MEAN CORPUSCULAR VOLUME 91.2 fL (80-100); MEAN PLATELET VOLUME 10.9 fL (7.4-10.4); RED BLOOD COUNT 2.65 x10^6/uL (3.82-5.3); RED CELL DISTRIBUTION WIDTH 16.5 % (9.6-15.2)
[2019-02-22 15:41] LABS: ALANINE AMINOTRANSFERASE 181 U/L (12-78); ALKALINE PHOSPHATASE 114 U/L (45-117); BILIRUBIN,TOTAL 3.6 mg/dL (0.2-1.0); CREATININE 2.74 mg/dL (0.55-1.02)
[2019-02-22 15:44] LABS: PLATELET COUNT 40 x10^3/uL (130-400)
[2019-02-22 16:17] LABS: MD YES
[2019-02-22 16:21] LABS: BAND#(MANUAL) 0.48 x10^3/uL; BANDS%(MANUAL) 4 % (0-7); EOS#(MANUAL) 0.36 x10^3/uL (0.0-0.4); EOS% (MANUAL) 3 % (1-7); LYMPH#(MANUAL) 1.68 x10^3/uL (1-3.4); LYMPHS% (MANUAL) 14 % (22-44); MONOS#(MANUAL) 0.36 x10^3/uL (0.3-2.7); MONOS% (MANUAL) 3 % (2-9); MYELOCYTES# (MANUAL) 0.12 x10^3/uL (0-0); MYELOCYTES% (MANUAL) 1 % (0-0); NRBC % (MANUAL) 3 % (0-1); REACTIVE LYMPHS # (MANUAL) 0.12 x10^3/uL (0-0); REACTIVE LYMPHS % (MANUAL) 1 % (0-0); SEG#(MANUAL) 8.88 x10^3/uL (1.8-6.8); SEGS% (MANUAL) 74 % (42-75)
[2019-02-22 16:23] LABS: POLYCHROMASIA 1+
[2019-02-22 16:24] LABS: HYPOCHROMIA 1+
[2019-02-22 16:25] LABS: MICROCYTOSIS 1+
[2019-02-22 16:26] LABS: <PLATELET ESTIMATE> DECREASED; <PLT MORPHOLOGY> NORMAL PLT MORPH
[2019-02-22] MEDS: METHYLNALTREXONE 12 MG/0.6 ML SQ SCH (17:00)
[2019-02-22 21:08] LABS: INTERNATIONAL NORMALIZED RATIO 0.95 (0.93-1.1)
[2019-02-22 21:10] LABS: ALBUMIN 3.4 g/dL (3.4-5.0); ANION GAP 7 mmol/L (5-15); CALCIUM 8.8 mg/dL (8.5-10.1); CHLORIDE 96 mmol/L (98-107)
[2019-02-22 21:13] LABS: ALANINE AMINOTRANSFERASE 157 U/L (12-78); ALKALINE PHOSPHATASE 104 U/L (45-117); BILIRUBIN,TOTAL 3.7 mg/dL (0.2-1.0); CREATININE 2.61 mg/dL (0.55-1.02); MEAN CORPUSCULAR HEMOGLOBIN 30.7 pg (27.0-34.8); MEAN CORPUSCULAR HGB CONC 33.8 g/dL (32.4-35.8); MEAN CORPUSCULAR VOLUME 90.8 fL (80-100); MEAN PLATELET VOLUME 10.8 fL (7.4-10.4); RED BLOOD COUNT 2.52 x10^6/uL (3.82-5.3); RED CELL DISTRIBUTION WIDTH 16.2 % (9.6-15.2); TOTAL PROTEIN 6.2 g/dL (6.4-8.2)
[2019-02-22 21:16] LABS: PLATELET COUNT 30 x10^3/uL (130-400)
[2019-02-22 21:54] LABS: MD YES
[2019-02-22 21:57] LABS: BAND#(MANUAL) 0.44 x10^3/uL; BANDS%(MANUAL) 4 % (0-7); LYMPH#(MANUAL) 1.67 x10^3/uL (1-3.4); LYMPHS% (MANUAL) 15 % (22-44); METAMYELOCYTES# (MANUAL) 0.11 x10^3/uL (0-0); METAMYELOCYTES% (MANUAL) 1 % (0-1); MONOS#(MANUAL) 0.89 x10^3/uL (0.3-2.7); MONOS% (MANUAL) 8 % (2-9); MYELOCYTES# (MANUAL) 0.11 x10^3/uL (0-0); MYELOCYTES% (MANUAL) 1 % (0-0); NRBC % (MANUAL) 1 % (0-1); SEG#(MANUAL) 7.88 x10^3/uL (1.8-6.8); SEGS% (MANUAL) 71 % (42-75)
[2019-02-22 21:58] LABS: HYPOCHROMIA 1+; MICROCYTOSIS 1+; POLYCHROMASIA 1+
[2019-02-22 21:59] LABS: <PLATELET ESTIMATE> DECREASED; <PLT MORPHOLOGY> NORMAL PLT MORPH
[2019-02-22] MEDS ORDERED: POTASSIUM CHLORIDE 30 MEQ in SODIUM CHLORIDE 0.9% 100 ML IV ONE (22:00)
[2019-02-23] MEDS: FUROSEMIDE 40 MG/4 ML IV SCH ×3 (00:08→15:25)
[2019-02-23] MEDS: LIDOCAINE-MPF 1%, 2ML ENDO PRN ×4 (02:35→18:40)
[2019-02-23] MEDS: IPRATROPIUM 0.5 MG/2.5 ML INHA NPPB SCH ×2 (02:35→07:16)
[2019-02-23] MEDS: PIPERACILLIN/TAZO 2.25 GM in NS 50 ML IV SCH ×4 (03:09→21:08)
[2019-02-23] MEDS: KSCALE TO 4.0 IV SCH ×4 (03:10→21:00)
[2019-02-23] MEDS: ALBUMIN HUMAN 25% 100 ML IV SCH ×2 (03:10→15:25)
[2019-02-23 03:19] LABS: ABSOLUTE RETICS # 0.133 x10^6/uL (0.5-2.5); RED BLOOD COUNT 2.61 x10^6/uL (3.82-5.3); RETICULOCYTE COUNT % 5.09 % (0.5-1.5)
[2019-02-23 03:27] LABS: BILIRUBIN, DIRECT 2.3 mg/dL (0.1-0.2)
[2019-02-23 03:28] LABS: BILIRUBIN,INDIRECT 0.9 mg/dL (0.0-2.0); BILIRUBIN,TOTAL 3.2 mg/dL (0.2-1.0)
[2019-02-23 05:15] LABS: ALBUMIN 3.2 g/dL (3.4-5.0); ANION GAP 8 mmol/L (5-15); CALCIUM 8.8 mg/dL (8.5-10.1); CHLORIDE 94 mmol/L (98-107); MEAN CORPUSCULAR HEMOGLOBIN 30.7 pg (27.0-34.8); MEAN CORPUSCULAR HGB CONC 33.4 g/dL (32.4-35.8); MEAN CORPUSCULAR VOLUME 91.9 fL (80-100); RED BLOOD COUNT 2.55 x10^6/uL (3.82-5.3); RED CELL DISTRIBUTION WIDTH 16.5 % (9.6-15.2)
[2019-02-23 05:19] LABS: ALANINE AMINOTRANSFERASE 153 U/L (12-78); ALKALINE PHOSPHATASE 106 U/L (45-117); BILIRUBIN,TOTAL 3.2 mg/dL (0.2-1.0); CREATININE 2.38 mg/dL (0.55-1.02); TOTAL PROTEIN 6.2 g/dL (6.4-8.2)
[2019-02-23 05:30] LABS: INTERNATIONAL NORMALIZED RATIO 0.92 (0.93-1.1); PROTHROMBIN TIME 9.7 Seconds (9.6-11.5)
[2019-02-23] MEDS: DEXMEDETOMIDINE 200 MCG in SODIUM CHLORIDE 0.9% 48 ML IV PRN ×3 (05:51→23:05)
[2019-02-23 06:00] LABS: MD YES
[2019-02-23] MEDS ORDERED: POTASSIUM CHLORIDE 30 MEQ in SODIUM CHLORIDE 0.9% 100 ML IV ONE ×4 (06:00→22:00)
[2019-02-23 06:01] LABS: MEAN PLATELET VOLUME 11.5 fL (7.4-10.4)
[2019-02-23 06:02] LABS: PLATELET COUNT 41 x10^3/uL (130-400)
[2019-02-23 06:04] LABS: BAND#(MANUAL) 0.21 x10^3/uL; BANDS%(MANUAL) 2 % (0-7); EOS#(MANUAL) 0.11 x10^3/uL (0.0-0.4); EOS% (MANUAL) 1 % (1-7); LYMPH#(MANUAL) 0.86 x10^3/uL (1-3.4); LYMPHS% (MANUAL) 8 % (22-44); METAMYELOCYTES# (MANUAL) 0.11 x10^3/uL (0-0); METAMYELOCYTES% (MANUAL) 1 % (0-1); MONOS#(MANUAL) 0.32 x10^3/uL (0.3-2.7); MONOS% (MANUAL) 3 % (2-9); SEGS% (MANUAL) 85 % (42-75)
[2019-02-23 06:06] LABS: <PLATELET ESTIMATE> DECREASED; <PLT MORPHOLOGY> NORMAL PLT MORPH; ANISOCYTOSIS 1+; MICROCYTOSIS 1+; POLYCHROMASIA 1+
[2019-02-23] MEDS: METOLAZONE 5 MG TABLET PO SCH (09:00)
[2019-02-23] MEDS: PRENATAL VIT/IRON/FA 1 EACH TABLET PO SCH (09:08)
[2019-02-23] MEDS: PANTOPRAZOLE 40 MG IV IV SCH (09:08)
[2019-02-23] MEDS: POTASSIUM CHLORIDE 10% 40 MEQ/30 ML UDC PO SCH ×3 (09:08→21:08)
[2019-02-23] MEDS: LACTULOSE 20 GM/30 ML UDC PO SCH (09:08)
[2019-02-23 10:15] LABS: ALANINE AMINOTRANSFERASE 138 U/L (12-78); ALBUMIN 3.5 g/dL (3.4-5.0); ANION GAP 9 mmol/L (5-15); CALCIUM 8.7 mg/dL (8.5-10.1); CHLORIDE 94 mmol/L (98-107); CREATININE 2.23 mg/dL (0.55-1.02)
[2019-02-23 10:17] LABS: ALKALINE PHOSPHATASE 124 U/L (45-117); BILIRUBIN,TOTAL 3.3 mg/dL (0.2-1.0); TOTAL PROTEIN 6.8 g/dL (6.4-8.2)
[2019-02-23 10:19] LABS: MEAN CORPUSCULAR HEMOGLOBIN 31.1 pg (27.0-34.8); MEAN CORPUSCULAR VOLUME 91.6 fL (80-100); RED BLOOD COUNT 2.58 x10^6/uL (3.82-5.3); RED CELL DISTRIBUTION WIDTH 16.6 % (9.6-15.2)
[2019-02-23 10:31] LABS: MD YES
[2019-02-23 10:34] LABS: ANISOCYTOSIS 1+; BAND#(MANUAL) 0.24 x10^3/uL; BANDS%(MANUAL) 2 % (0-7); LYMPH#(MANUAL) 1.65 x10^3/uL (1-3.4); LYMPHS% (MANUAL) 14 % (22-44); METAMYELOCYTES# (MANUAL) 0.12 x10^3/uL (0-0); METAMYELOCYTES% (MANUAL) 1 % (0-1); MONOS#(MANUAL) 0.24 x10^3/uL (0.3-2.7); MONOS% (MANUAL) 2 % (2-9); MYELOCYTES# (MANUAL) 0.12 x10^3/uL (0-0); MYELOCYTES% (MANUAL) 1 % (0-0); NRBC % (MANUAL) 1 % (0-1); POLYCHROMASIA 1+; SEG#(MANUAL) 9.44 x10^3/uL (1.8-6.8); SEGS% (MANUAL) 80 % (42-75)
[2019-02-23 10:35] LABS: <PLATELET ESTIMATE> DECREASED; <PLT MORPHOLOGY> NORMAL PLT MORPH; HYPOCHROMIA 1+
[2019-02-23 10:36] LABS: MEAN PLATELET VOLUME 12.2 fL (7.4-10.4)
[2019-02-23 10:42] LABS: PLATELET COUNT 40 x10^3/uL (130-400)
[2019-02-23] MEDS: AcetaZOLAMIDE INJ 500 MG IVPush SCH (10:48)
[2019-02-23] MEDS: FENTANYL PF 100 MCG/2ML IVPush PRN (13:55)
[2019-02-23] MEDS ORDERED: IPRATROPIUM 0.5 MG/2.5 ML INHA NPPB SCH (15:00)
[2019-02-23] MEDS: ACETAMINOPHEN 650 MG/20.3 ML UDC PO PRN (15:30)
[2019-02-23 15:45] LABS: ALANINE AMINOTRANSFERASE 128 U/L (12-78); ALBUMIN 3.4 g/dL (3.4-5.0); ANION GAP 8 mmol/L (5-15); CALCIUM 8.7 mg/dL (8.5-10.1); CHLORIDE 95 mmol/L (98-107); CREATININE 2.17 mg/dL (0.55-1.02)
[2019-02-23 15:48] LABS: ALKALINE PHOSPHATASE 126 U/L (45-117); BILIRUBIN,TOTAL 2.7 mg/dL (0.2-1.0); TOTAL PROTEIN 6.4 g/dL (6.4-8.2)
[2019-02-23 15:58] LABS: MEAN CORPUSCULAR HEMOGLOBIN 30.9 pg (27.0-34.8); MEAN CORPUSCULAR HGB CONC 33.4 g/dL (32.4-35.8); MEAN CORPUSCULAR VOLUME 92.4 fL (80-100); MEAN PLATELET VOLUME 11.8 fL (7.4-10.4); RED BLOOD COUNT 2.49 x10^6/uL (3.82-5.3); RED CELL DISTRIBUTION WIDTH 16.3 % (9.6-15.2)
[2019-02-23 16:01] LABS: PLATELET COUNT 39 x10^3/uL (130-400)
[2019-02-23 16:14] LABS: MD YES
[2019-02-23 16:32] LABS: BAND#(MANUAL) 0.77 x10^3/uL; BANDS%(MANUAL) 7 % (0-7); LYMPH#(MANUAL) 1.43 x10^3/uL (1-3.4); LYMPHS% (MANUAL) 13 % (22-44); METAMYELOCYTES# (MANUAL) 0.11 x10^3/uL (0-0); METAMYELOCYTES% (MANUAL) 1 % (0-1); MONOS#(MANUAL) 0.66 x10^3/uL (0.3-2.7); MONOS% (MANUAL) 6 % (2-9); SEG#(MANUAL) 8.03 x10^3/uL (1.8-6.8); SEGS% (MANUAL) 73 % (42-75)
[2019-02-23 16:33] LABS: <PLATELET ESTIMATE> DECREASED; ANISOCYTOSIS 1+; HYPOCHROMIA 1+; MICROCYTOSIS 1+; POLYCHROMASIA 1+
[2019-02-23 16:34] LABS: LARGE PLATELETS 1+
[2019-02-23] MEDS ORDERED: AcetaZOLAMIDE INJ 500 MG IVPush ONE (17:00)
[2019-02-23] MEDS: ALBUTEROL/IPRATROPIUM 2.5MG/0.5MG, 3 ML NPPB SCH ×2 (18:40→22:27)
[2019-02-23 21:19] LABS: ALANINE AMINOTRANSFERASE 113 U/L (12-78); ALBUMIN 3.6 g/dL (3.4-5.0); ANION GAP 5 mmol/L (5-15); CHLORIDE 98 mmol/L (98-107); CREATININE 2.22 mg/dL (0.55-1.02)
[2019-02-23 21:21] LABS: MD YES; MEAN CORPUSCULAR HEMOGLOBIN 30.2 pg (27.0-34.8); MEAN CORPUSCULAR HGB CONC 32.6 g/dL (32.4-35.8); MEAN CORPUSCULAR VOLUME 92.9 fL (80-100); MEAN PLATELET VOLUME 11.3 fL (7.4-10.4); RED BLOOD COUNT 2.37 x10^6/uL (3.82-5.3); RED CELL DISTRIBUTION WIDTH 16.3 % (9.6-15.2)
[2019-02-23 21:22] LABS: ALKALINE PHOSPHATASE 123 U/L (45-117); BILIRUBIN,TOTAL 2.6 mg/dL (0.2-1.0); TOTAL PROTEIN 6.8 g/dL (6.4-8.2)
[2019-02-23 21:24] LABS: PLATELET COUNT 43 x10^3/uL (130-400)
[2019-02-23 21:49] LABS: BAND#(MANUAL) 0.21 x10^3/uL; BANDS%(MANUAL) 2 % (0-7); LYMPH#(MANUAL) 1.26 x10^3/uL (1-3.4); LYMPHS% (MANUAL) 12 % (22-44); METAMYELOCYTES# (MANUAL) 0.11 x10^3/uL (0-0); METAMYELOCYTES% (MANUAL) 1 % (0-1); MONOS#(MANUAL) 0.32 x10^3/uL (0.3-2.7); MONOS% (MANUAL) 3 % (2-9); MYELOCYTES# (MANUAL) 0.11 x10^3/uL (0-0); MYELOCYTES% (MANUAL) 1 % (0-0); NRBC % (MANUAL) 1 % (0-1); SEG#(MANUAL) 8.51 x10^3/uL (1.8-6.8); SEGS% (MANUAL) 81 % (42-75)
[2019-02-23 21:50] LABS: <PLATELET ESTIMATE> DECREASED; ANISOCYTOSIS 1+; HYPOCHROMIA 1+; LARGE PLATELETS 1+; POLYCHROMASIA 1+
[2019-02-24] VITALS (15 sets, daily range): BP systolic 143–180; BP diastolic 83–105
[2019-02-24] MEDS: FENTANYL PF 100 MCG/2ML IVPush PRN ×4 (00:33→20:41)
[2019-02-24] MEDS: LABETALOL 5MG/ML, 20ML IVPush PRN ×5 (01:00→21:35)
[2019-02-24] MEDS: ALBUTEROL/IPRATROPIUM 2.5MG/0.5MG, 3 ML NPPB SCH ×6 (02:00→23:00)
[2019-02-24 02:52] LABS: MEAN CORPUSCULAR HEMOGLOBIN 29.6 pg (27.0-34.8); MEAN CORPUSCULAR HGB CONC 32.3 g/dL (32.4-35.8); MEAN CORPUSCULAR VOLUME 91.6 fL (80-100); MEAN PLATELET VOLUME 10.9 fL (7.4-10.4); RED BLOOD COUNT 2.38 x10^6/uL (3.82-5.3)
[2019-02-24 02:54] LABS: PLATELET COUNT 45 x10^3/uL (130-400)
[2019-02-24] MEDS: KSCALE TO 4.0 IV SCH ×4 (03:00→21:00)
[2019-02-24 03:03] LABS: ALANINE AMINOTRANSFERASE 109 U/L (12-78); ALBUMIN 3.5 g/dL (3.4-5.0); ANION GAP 5 mmol/L (5-15); CALCIUM 9.3 mg/dL (8.5-10.1); CHLORIDE 102 mmol/L (98-107); CREATININE 2.01 mg/dL (0.55-1.02)
[2019-02-24 03:05] LABS: ALKALINE PHOSPHATASE 126 U/L (45-117); BILIRUBIN,TOTAL 2.4 mg/dL (0.2-1.0); TOTAL PROTEIN 6.7 g/dL (6.4-8.2)
[2019-02-24 03:09] LABS: BASOPHILS # (AUTO) 0.01 x10^3/uL (0-0.1); BASOPHILS % (AUTO) 0 % (0-1); EOSINOPHILS % (AUTO) 0 % (1-7); LYMPHOCYTES # (AUTO) 1.42 x10^3/uL (1-3.4); LYMPHOCYTES % (AUTO) 13 % (22-44); MD SCAN; MONOCYTES # (AUTO) 0.35 x10^3/uL (0.2-0.8); MONOCYTES % (AUTO) 3 % (2-9); NEUTROPHILS # (AUTO) 9.32 x10^3/uL (1.8-6.8); NEUTROPHILS % (AUTO) 84 % (42-75)
[2019-02-24] MEDS: PIPERACILLIN/TAZO 2.25 GM in NS 50 ML IV SCH ×4 (03:15→20:40)
[2019-02-24] MEDS: ALBUMIN HUMAN 25% 100 ML IV SCH ×2 (03:16→14:55)
[2019-02-24] MEDS: ACETAMINOPHEN 650 MG/20.3 ML UDC PO PRN ×4 (03:17→21:34)
[2019-02-24] MEDS ORDERED: POTASSIUM CHLORIDE PMX 100 ML IV ONE ×3 (03:30→22:30)
[2019-02-24] MEDS: DEXMEDETOMIDINE 1,000 MCG in SODIUM CHLORIDE 0.9% 240 ML IV PRN ×2 (06:06→19:03)
[2019-02-24] MEDS: POTASSIUM CHLORIDE 10% 40 MEQ/30 ML UDC PO SCH ×3 (07:57→20:41)
[2019-02-24] MEDS ORDERED: LACTULOSE 20 GM/30 ML UDC PO PRN (08:30)
[2019-02-24] MEDS: AcetaZOLAMIDE INJ 500 MG IVPush SCH (08:41)
[2019-02-24] MEDS: PRENATAL VIT/IRON/FA 1 EACH TABLET PO SCH (08:41)
[2019-02-24] MEDS: PANTOPRAZOLE 40 MG IV IV SCH (08:41)
[2019-02-24 09:32] LABS: ALANINE AMINOTRANSFERASE 104 U/L (12-78); ALBUMIN 3.7 g/dL (3.4-5.0); ANION GAP 7 mmol/L (5-15); CALCIUM 8.9 mg/dL (8.5-10.1); CHLORIDE 104 mmol/L (98-107); CREATININE 1.92 mg/dL (0.55-1.02)
[2019-02-24 09:33] LABS: ALKALINE PHOSPHATASE 142 U/L (45-117); BILIRUBIN,TOTAL 2.3 mg/dL (0.2-1.0); TOTAL PROTEIN 6.6 g/dL (6.4-8.2)
[2019-02-24 10:26] LABS: MEAN CORPUSCULAR HEMOGLOBIN 30.8 pg (27.0-34.8); MEAN CORPUSCULAR HGB CONC 33.3 g/dL (32.4-35.8); MEAN CORPUSCULAR VOLUME 92.5 fL (80-100); MEAN PLATELET VOLUME 11.7 fL (7.4-10.4); RED BLOOD COUNT 2.14 x10^6/uL (3.82-5.3); RED CELL DISTRIBUTION WIDTH 17.1 % (9.6-15.2)
[2019-02-24 10:27] LABS: PLATELET COUNT 47 x10^3/uL (130-400)
[2019-02-24 10:29] LABS: BASOPHILS # (AUTO) 0.01 x10^3/uL (0-0.1); BASOPHILS % (AUTO) 0 % (0-1); EOSINOPHILS # (AUTO) 0.12 x10^3/uL (0-0.4); EOSINOPHILS % (AUTO) 1 % (1-7); LYMPHOCYTES # (AUTO) 1.36 x10^3/uL (1-3.4); LYMPHOCYTES % (AUTO) 12 % (22-44); MD SCAN; MONOCYTES # (AUTO) 0.38 x10^3/uL (0.2-0.8); MONOCYTES % (AUTO) 3 % (2-9); NEUTROPHILS # (AUTO) 9.25 x10^3/uL (1.8-6.8); NEUTROPHILS % (AUTO) 83 % (42-75)
[2019-02-24] MEDS: FENTANYL PF 2,500 MCG in SODIUM CHLORIDE 0.9% 200 ML IV PRN (10:30)
[2019-02-24 15:28] LABS: ALANINE AMINOTRANSFERASE 102 U/L (12-78); ALBUMIN 3.5 g/dL (3.4-5.0); CALCIUM 8.9 mg/dL (8.5-10.1)
[2019-02-24 15:31] LABS: ALKALINE PHOSPHATASE 148 U/L (45-117); BILIRUBIN,TOTAL 2.2 mg/dL (0.2-1.0); TOTAL PROTEIN 6.9 g/dL (6.4-8.2)
[2019-02-24 15:39] LABS: ANION GAP 5 mmol/L (5-15); CHLORIDE 109 mmol/L (98-107)
[2019-02-24] MEDS ORDERED: POTASSIUM CHLORIDE 30 MEQ in SODIUM CHLORIDE 0.9% 100 ML IV ONE (16:00)
[2019-02-24 18:21] LABS: MEAN CORPUSCULAR HGB CONC 33.4 g/dL (32.4-35.8); MEAN PLATELET VOLUME 10.6 fL (7.4-10.4); PLATELET COUNT 71 x10^3/uL (130-400); RED BLOOD COUNT 2.36 x10^6/uL (3.82-5.3)
[2019-02-24 19:02] LABS: BASOPHILS # (AUTO) 0.04 x10^3/uL (0-0.1); BASOPHILS % (AUTO) 0 % (0-1); EOSINOPHILS % (AUTO) 1 % (1-7); LYMPHOCYTES # (AUTO) 1.49 x10^3/uL (1-3.4); LYMPHOCYTES % (AUTO) 12 % (22-44); MD SCAN; MONOCYTES # (AUTO) 0.35 x10^3/uL (0.2-0.8); MONOCYTES % (AUTO) 3 % (2-9); NEUTROPHILS # (AUTO) 10.82 x10^3/uL (1.8-6.8); NEUTROPHILS % (AUTO) 85 % (42-75)
[2019-02-24 21:37] LABS: MEAN CORPUSCULAR HEMOGLOBIN 30.5 pg (27.0-34.8); MEAN CORPUSCULAR HGB CONC 33.4 g/dL (32.4-35.8); MEAN CORPUSCULAR VOLUME 91.3 fL (80-100); MEAN PLATELET VOLUME 9.8 fL (7.4-10.4); PLATELET COUNT 91 x10^3/uL (130-400); RED BLOOD COUNT 2.73 x10^6/uL (3.82-5.3); RED CELL DISTRIBUTION WIDTH 17.6 % (9.6-15.2)
[2019-02-24 21:49] LABS: ANISOCYTOSIS 1+; BASOPHILS # (AUTO) 0.04 x10^3/uL (0-0.1); BASOPHILS % (AUTO) 0 % (0-1); EOSINOPHILS # (AUTO) 0.12 x10^3/uL (0-0.4); EOSINOPHILS % (AUTO) 1 % (1-7); LYMPHOCYTES # (AUTO) 1.65 x10^3/uL (1-3.4); LYMPHOCYTES % (AUTO) 12 % (22-44); MD MORPH REVIEW ONLY; MONOCYTES # (AUTO) 0.54 x10^3/uL (0.2-0.8); MONOCYTES % (AUTO) 4 % (2-9); NEUTROPHILS % (AUTO) 83 % (42-75)
[2019-02-24 21:50] LABS: POLYCHROMASIA 1+
[2019-02-24 21:53] LABS: <PLATELET ESTIMATE> DECREASED; LARGE PLATELETS 1+
[2019-02-24 21:55] LABS: ALANINE AMINOTRANSFERASE 93 U/L (12-78); ALBUMIN 3.7 g/dL (3.4-5.0); ANION GAP 7 mmol/L (5-15); CALCIUM 8.6 mg/dL (8.5-10.1); CHLORIDE 115 mmol/L (98-107); CREATININE 1.57 mg/dL (0.55-1.02)
[2019-02-24 21:57] LABS: ALKALINE PHOSPHATASE 176 U/L (45-117); TOTAL PROTEIN 6.8 g/dL (6.4-8.2)
[2019-02-24] MEDS: hydrALAzine 20 MG/ML, 1ML IV PRN (23:39)
[2019-02-25] MEDS: LABETALOL 5MG/ML, 20ML IVPush PRN ×2 (01:20→06:01)
[2019-02-25] MEDS: ALBUTEROL/IPRATROPIUM 2.5MG/0.5MG, 3 ML NPPB SCH ×6 (02:30→23:00)
[2019-02-25] MEDS: KSCALE TO 4.0 IV SCH ×4 (03:00→21:42)
[2019-02-25] MEDS: PIPERACILLIN/TAZO 2.25 GM in NS 50 ML IV SCH ×4 (03:14→20:21)
[2019-02-25] MEDS: ACETAMINOPHEN 650 MG/20.3 ML UDC PO PRN ×3 (03:15→11:54)
[2019-02-25] MEDS: ALBUMIN HUMAN 25% 100 ML IV SCH ×2 (03:19→15:36)
[2019-02-25 03:27] LABS: MEAN CORPUSCULAR HEMOGLOBIN 30.2 pg (27.0-34.8); MEAN CORPUSCULAR HGB CONC 33.2 g/dL (32.4-35.8); MEAN CORPUSCULAR VOLUME 90.8 fL (80-100); MEAN PLATELET VOLUME 10.8 fL (7.4-10.4); PLATELET COUNT 92 x10^3/uL (130-400); RED BLOOD COUNT 2.81 x10^6/uL (3.82-5.3); RED CELL DISTRIBUTION WIDTH 17.1 % (9.6-15.2)
[2019-02-25 03:36] LABS: ALANINE AMINOTRANSFERASE 86 U/L (12-78); ALBUMIN 3.5 g/dL (3.4-5.0); ANION GAP 5 mmol/L (5-15); CALCIUM 8.6 mg/dL (8.5-10.1); CHLORIDE 120 mmol/L (98-107); CREATININE 1.45 mg/dL (0.55-1.02)
[2019-02-25 03:38] LABS: ALKALINE PHOSPHATASE 167 U/L (45-117); BILIRUBIN,TOTAL 2.5 mg/dL (0.2-1.0); TOTAL PROTEIN 6.9 g/dL (6.4-8.2)
[2019-02-25] MEDS: DEXMEDETOMIDINE 1,000 MCG in SODIUM CHLORIDE 0.9% 240 ML IV PRN ×2 (03:44→20:07)
[2019-02-25] MEDS: hydrALAzine 20 MG/ML, 1ML IV PRN (03:48)
[2019-02-25 04:13] LABS: MD YES
[2019-02-25 04:15] LABS: BAND#(MANUAL) 0.15 x10^3/uL; BANDS%(MANUAL) 1 % (0-7); LYMPH#(MANUAL) 3.21 x10^3/uL (1-3.4); LYMPHS% (MANUAL) 21 % (22-44); METAMYELOCYTES# (MANUAL) 0.46 x10^3/uL (0-0); METAMYELOCYTES% (MANUAL) 3 % (0-1); MONOS#(MANUAL) 0.15 x10^3/uL (0.3-2.7); MONOS% (MANUAL) 1 % (2-9); NRBC % (MANUAL) 1 % (0-1); SEG#(MANUAL) 11.32 x10^3/uL (1.8-6.8); SEGS% (MANUAL) 74 % (42-75)
[2019-02-25 04:16] LABS: ANISOCYTOSIS 1+; OVALOCYTES 1+; POLYCHROMASIA 1+
[2019-02-25 04:20] LABS: <PLATELET ESTIMATE> DECREASED; LARGE PLATELETS 1+
[2019-02-25] MEDS ORDERED: POTASSIUM CHLORIDE 30 MEQ in SODIUM CHLORIDE 0.9% 100 ML IV ONE (05:00)
[2019-02-25] MEDS: PANTOPRAZOLE 40 MG IV IV SCH (08:14)
[2019-02-25] MEDS: POTASSIUM CHLORIDE 10% 40 MEQ/30 ML UDC PO SCH ×3 (08:14→21:42)
[2019-02-25] MEDS: PRENATAL VIT/IRON/FA 1 EACH TABLET PO SCH (08:14)
[2019-02-25] MEDS ORDERED: FENTANYL PF 2,500 MCG in SODIUM CHLORIDE 0.9% 200 ML IV SCH (08:30)
[2019-02-25] MEDS: PROPOFOL 100 ML IV PRN ×4 (08:31→20:19)
[2019-02-25] MEDS: FENTANYL PF 100 MCG/2ML IVPush PRN ×5 (09:30→23:00)
[2019-02-25 10:28] LABS: ALANINE AMINOTRANSFERASE 87 U/L (12-78); ALBUMIN 3.5 g/dL (3.4-5.0); ANION GAP 7 mmol/L (5-15); CALCIUM 8.5 mg/dL (8.5-10.1); CHLORIDE 123 mmol/L (98-107)
[2019-02-25 10:30] LABS: ALKALINE PHOSPHATASE 152 U/L (45-117); BILIRUBIN,TOTAL 2.2 mg/dL (0.2-1.0); CREATININE 1.45 mg/dL (0.55-1.02); TOTAL PROTEIN 6.7 g/dL (6.4-8.2)
[2019-02-25 10:48] LABS: MD YES
[2019-02-25 10:49] LABS: MEAN CORPUSCULAR HEMOGLOBIN 30.7 pg (27.0-34.8); MEAN CORPUSCULAR HGB CONC 33.8 g/dL (32.4-35.8); MEAN CORPUSCULAR VOLUME 90.9 fL (80-100); MEAN PLATELET VOLUME 11.1 fL (7.4-10.4); PLATELET COUNT 96 x10^3/uL (130-400); RED BLOOD COUNT 2.52 x10^6/uL (3.82-5.3); RED CELL DISTRIBUTION WIDTH 18.3 % (9.6-15.2)
[2019-02-25] MEDS ORDERED: POTASSIUM CHLORIDE PMX 100 ML IV ONE ×3 (11:00→22:30)
[2019-02-25 11:02] LABS: ANISOCYTOSIS 1+; BAND#(MANUAL) 0.86 x10^3/uL; BANDS%(MANUAL) 6 % (0-7); LYMPH#(MANUAL) 2.88 x10^3/uL (1-3.4); LYMPHS% (MANUAL) 20 % (22-44); MONOS#(MANUAL) 0.58 x10^3/uL (0.3-2.7); MONOS% (MANUAL) 4 % (2-9); MYELOCYTES# (MANUAL) 0.14 x10^3/uL (0-0); MYELOCYTES% (MANUAL) 1 % (0-0); NRBC % (MANUAL) 3 % (0-1); POLYCHROMASIA 1+; SEG#(MANUAL) 9.94 x10^3/uL (1.8-6.8); SEGS% (MANUAL) 69 % (42-75)
[2019-02-25 11:04] LABS: <PLATELET ESTIMATE> DECREASED; LARGE PLATELETS 1+
[2019-02-25 16:09] LABS: MEAN CORPUSCULAR HGB CONC 33.1 g/dL (32.4-35.8); MEAN CORPUSCULAR VOLUME 90.4 fL (80-100); MEAN PLATELET VOLUME 10.1 fL (7.4-10.4); PLATELET COUNT 88 x10^3/uL (130-400); RED BLOOD COUNT 2.54 x10^6/uL (3.82-5.3); RED CELL DISTRIBUTION WIDTH 18.7 % (9.6-15.2)
[2019-02-25 16:11] LABS: ALANINE AMINOTRANSFERASE 89 U/L (12-78); ALBUMIN 3.5 g/dL (3.4-5.0); ANION GAP 5 mmol/L (5-15); CALCIUM 8.4 mg/dL (8.5-10.1); CHLORIDE 127 mmol/L (98-107); CREATININE 1.38 mg/dL (0.55-1.02)
[2019-02-25 16:13] LABS: ALKALINE PHOSPHATASE 135 U/L (45-117); BILIRUBIN,TOTAL 1.9 mg/dL (0.2-1.0); TOTAL PROTEIN 6.9 g/dL (6.4-8.2)
[2019-02-25] MEDS: FLUCONAZOLE 200 MG/100 ML 100 ML IV SCH (16:28)
[2019-02-25 16:30] LABS: MD YES
[2019-02-25 16:41] LABS: BANDS%(MANUAL) 6 % (0-7); LYMPHS% (MANUAL) 12 % (22-44); MONOS% (MANUAL) 4 % (2-9); MYELOCYTES# (MANUAL) 0.15 x10^3/uL (0-0); MYELOCYTES% (MANUAL) 1 % (0-0); NRBC % (MANUAL) 5 % (0-1); SEG#(MANUAL) 11.55 x10^3/uL (1.8-6.8); SEGS% (MANUAL) 77 % (42-75)
[2019-02-25 16:42] LABS: <PLATELET ESTIMATE> DECREASED; ANISOCYTOSIS 1+; POLYCHROMASIA 1+
[2019-02-25 16:43] LABS: LARGE PLATELETS 1+
[2019-02-25] MEDS ORDERED: QUETIAPINE 25MG TABLET PO PRN (20:00)
[2019-02-26] MEDS: PROPOFOL 100 ML IV PRN ×6 (00:14→19:04)
[2019-02-26] MEDS: FENTANYL PF 100 MCG/2ML IVPush PRN ×5 (02:19→15:33)
[2019-02-26] MEDS: ALBUTEROL/IPRATROPIUM 2.5MG/0.5MG, 3 ML NPPB SCH ×6 (02:45→22:27)
[2019-02-26] MEDS: PIPERACILLIN/TAZO 2.25 GM in NS 50 ML IV SCH ×4 (02:52→20:51)
[2019-02-26] MEDS: ALBUMIN HUMAN 25% 100 ML IV SCH (03:31)
[2019-02-26] MEDS: KSCALE TO 4.0 IV SCH ×3 (04:03→22:57)
[2019-02-26 04:25] LABS: MEAN CORPUSCULAR HEMOGLOBIN 29.7 pg (27.0-34.8); MEAN CORPUSCULAR HGB CONC 32.8 g/dL (32.4-35.8); MEAN CORPUSCULAR VOLUME 90.5 fL (80-100); RED BLOOD COUNT 2.34 x10^6/uL (3.82-5.3)
[2019-02-26 04:27] LABS: MEAN PLATELET VOLUME 11.3 fL (7.4-10.4); PLATELET COUNT 83 x10^3/uL (130-400)
[2019-02-26 04:30] LABS: ALANINE AMINOTRANSFERASE 73 U/L (12-78); ALBUMIN 3.3 g/dL (3.4-5.0); ANION GAP 6 mmol/L (5-15); CALCIUM 8.1 mg/dL (8.5-10.1); CHLORIDE 131 mmol/L (98-107); CREATININE 1.23 mg/dL (0.55-1.02)
[2019-02-26 04:32] LABS: ALKALINE PHOSPHATASE 140 U/L (45-117); BILIRUBIN,TOTAL 1.6 mg/dL (0.2-1.0); TOTAL PROTEIN 6.5 g/dL (6.4-8.2)
[2019-02-26 04:55] LABS: BASOPHILS # (AUTO) 0.02 x10^3/uL (0-0.1); BASOPHILS % (AUTO) 0 % (0-1); EOSINOPHILS # (AUTO) 0.23 x10^3/uL (0-0.4); EOSINOPHILS % (AUTO) 2 % (1-7); LYMPHOCYTES # (AUTO) 2.28 x10^3/uL (1-3.4); LYMPHOCYTES % (AUTO) 17 % (22-44); MD SCAN; MONOCYTES # (AUTO) 0.66 x10^3/uL (0.2-0.8); MONOCYTES % (AUTO) 5 % (2-9); NEUTROPHILS # (AUTO) 9.99 x10^3/uL (1.8-6.8); NEUTROPHILS % (AUTO) 76 % (42-75)
[2019-02-26] MEDS ORDERED: POTASSIUM CHLORIDE PMX 100 ML IV ONE ×3 (05:00→23:00)
[2019-02-26 05:57] VITALS: BP 136/84
[2019-02-26 06:14] VITALS: BP 136/84
[2019-02-26] MEDS: PANTOPRAZOLE 40 MG IV IV SCH (07:52)
[2019-02-26] MEDS: PRENATAL VIT/IRON/FA 1 EACH TABLET PO SCH (07:52)
[2019-02-26 08:40] VITALS: BP 153/101
[2019-02-26] MEDS: LABETALOL 5MG/ML, 20ML IVPush PRN ×2 (08:44→13:31)
[2019-02-26] MEDS: DEXMEDETOMIDINE 1,000 MCG in SODIUM CHLORIDE 0.9% 240 ML IV PRN ×2 (08:45→18:31)
[2019-02-26 09:30] VITALS: BP 140/87
[2019-02-26] MEDS: ACETAMINOPHEN 650 MG/20.3 ML UDC PO PRN (12:59)
[2019-02-26] MEDS ORDERED: POTASSIUM CHLORIDE 10% 40 MEQ/30 ML UDC PO ONE (14:30)
[2019-02-26] MEDS: FLUCONAZOLE 200 MG/100 ML 100 ML IV SCH (15:29)
[2019-02-26 17:05] LABS: ANION GAP 6 mmol/L (5-15); CALCIUM 7.9 mg/dL (8.5-10.1); CHLORIDE 131 mmol/L (98-107); CREATININE 1.21 mg/dL (0.55-1.02)
[2019-02-26] MEDS ORDERED: HYDROmorphone 2 MG/ML, 1ML ONE (17:18)
[2019-02-26 17:23] LABS: D-DIMER (DIC) 18.6 ug/mlFEU (0.00-0.52); PROTIME 11.8 Seconds (9.6-11.5)
[2019-02-26] MEDS ORDERED: HYDROmorphone 2 MG/ML, 1ML IVPush ONE (17:30)
[2019-02-27] MEDS: MORPHINE SULFATE 4 MG/ML, 1ML IVPush PRN (00:01)
[2019-02-27] MEDS: PROPOFOL 100 ML IV PRN ×6 (00:04→20:02)
[2019-02-27] MEDS: ALBUTEROL/IPRATROPIUM 2.5MG/0.5MG, 3 ML NPPB SCH ×6 (02:18→22:53)
[2019-02-27] MEDS: DEXMEDETOMIDINE 1,000 MCG in SODIUM CHLORIDE 0.9% 240 ML IV PRN ×3 (03:39→21:37)
[2019-02-27] MEDS: FENTANYL PF 100 MCG/2ML IVPush PRN ×3 (03:54→20:02)
[2019-02-27] MEDS: PIPERACILLIN/TAZO 2.25 GM in NS 50 ML IV SCH ×4 (03:54→21:37)
[2019-02-27] MEDS: KSCALE TO 4.0 IV SCH ×4 (04:00→23:00)
[2019-02-27 04:51] LABS: ANION GAP 7 mmol/L (5-15); CALCIUM 7.5 mg/dL (8.5-10.1); CHLORIDE 128 mmol/L (98-107); CREATININE 0.91 mg/dL (0.55-1.02)
[2019-02-27 04:52] LABS: MEAN CORPUSCULAR VOLUME 90.8 fL (80-100); RED BLOOD COUNT 2.56 x10^6/uL (3.82-5.3)
[2019-02-27] MEDS ORDERED: POTASSIUM CHLORIDE PMX 100 ML IV ONE ×2 (05:30→19:00)
[2019-02-27 05:41] LABS: BASOPHILS # (AUTO) 0.03 x10^3/uL (0-0.1); BASOPHILS % (AUTO) 0 % (0-1); EOSINOPHILS # (AUTO) 0.16 x10^3/uL (0-0.4); EOSINOPHILS % (AUTO) 1 % (1-7); LYMPHOCYTES % (AUTO) 19 % (22-44); MD SCAN; MEAN PLATELET VOLUME 11.7 fL (7.4-10.4); MONOCYTES # (AUTO) 0.55 x10^3/uL (0.2-0.8); MONOCYTES % (AUTO) 5 % (2-9); NEUTROPHILS # (AUTO) 8.61 x10^3/uL (1.8-6.8); NEUTROPHILS % (AUTO) 75 % (42-75); PLATELET COUNT 73 x10^3/uL (130-400)
[2019-02-27] MEDS ORDERED: MAGNESIUM SULFATE PMX 2GM/50ML 50 ML IV ONE (07:30)
[2019-02-27] MEDS: PRENATAL VIT/IRON/FA 1 EACH TABLET PO SCH (10:22)
[2019-02-27] MEDS: POTASSIUM CHLORIDE 10% 40 MEQ/30 ML UDC PO SCH ×2 (10:22→21:37)
[2019-02-27] MEDS: PANTOPRAZOLE 40 MG IV IV SCH (10:22)
--- NOTE | 2019-02-27 11:45 | NUR ---
TF GOAL: w/ propofol: PROMOTE @ 55ml/hr off propofol: 65ml/hr
[2019-02-27] MEDS: LIDOCAINE-MPF 1%, 2ML ENDO PRN (12:41)
[2019-02-27] MEDS: FLUCONAZOLE 200 MG/100 ML 100 ML IV SCH (15:50)
[2019-02-27] MEDS: FENTANYL PF 2,500 MCG in SODIUM CHLORIDE 0.9% 200 ML IV PRN (22:20)
[2019-02-28] MEDS: ALBUTEROL/IPRATROPIUM 2.5MG/0.5MG, 3 ML NPPB SCH ×6 (03:00→22:33)
[2019-02-28] MEDS: PROPOFOL 100 ML IV PRN ×4 (03:43→13:11)
[2019-02-28] MEDS: PIPERACILLIN/TAZO 2.25 GM in NS 50 ML IV SCH ×4 (03:43→22:20)
[2019-02-28] MEDS: KSCALE TO 4.0 IV SCH ×4 (05:00→23:45)
[2019-02-28 05:41] LABS: MEAN CORPUSCULAR HEMOGLOBIN 30.2 pg (27.0-34.8); MEAN CORPUSCULAR HGB CONC 32.8 g/dL (32.4-35.8); MEAN CORPUSCULAR VOLUME 92.1 fL (80-100); RED BLOOD COUNT 2.67 x10^6/uL (3.82-5.3)
[2019-02-28 05:49] LABS: ANION GAP 7 mmol/L (5-15); CALCIUM 7.7 mg/dL (8.5-10.1); CHLORIDE 124 mmol/L (98-107); CREATININE 0.76 mg/dL (0.55-1.02)
[2019-02-28 06:06] LABS: MD YES
[2019-02-28 06:07] LABS: MEAN PLATELET VOLUME 10.1 fL (7.4-10.4); PLATELET COUNT 78 x10^3/uL (130-400)
[2019-02-28 06:08] LABS: BAND#(MANUAL) 0.65 x10^3/uL; BANDS%(MANUAL) 7 % (0-7); LYMPH#(MANUAL) 1.86 x10^3/uL (1-3.4); LYMPHS% (MANUAL) 20 % (22-44); METAMYELOCYTES# (MANUAL) 0.09 x10^3/uL (0-0); METAMYELOCYTES% (MANUAL) 1 % (0-1); MONOS#(MANUAL) 0.09 x10^3/uL (0.3-2.7); MONOS% (MANUAL) 1 % (2-9); NRBC % (MANUAL) 3 % (0-1); SEGS% (MANUAL) 71 % (42-75)
[2019-02-28 06:09] LABS: ANISOCYTOSIS 1+; POLYCHROMASIA 1+
[2019-02-28 06:10] LABS: <PLATELET ESTIMATE> DECREASED; LARGE PLATELETS 1+
[2019-02-28] MEDS: DEXMEDETOMIDINE 1,000 MCG in SODIUM CHLORIDE 0.9% 240 ML IV PRN ×2 (06:28→15:26)
[2019-02-28] MEDS ORDERED: POTASSIUM CHLORIDE PMX 100 ML IV ONE ×2 (06:30→23:30)
[2019-02-28] MEDS ORDERED: OXYMETAZOLINE NASAL SPRAY 0.05%, 15ML NAS PRN (09:30)
[2019-02-28] MEDS: PRENATAL VIT/IRON/FA 1 EACH TABLET PO SCH (09:37)
[2019-02-28] MEDS: PANTOPRAZOLE 40 MG IV IV SCH (09:37)
[2019-02-28] MEDS: POTASSIUM CHLORIDE 10% 40 MEQ/30 ML UDC PO SCH ×3 (09:37→23:16)
[2019-02-28] MEDS: RISPERIDONE 1 MG/ML ORAL SOLN PO SCH ×2 (09:56→22:20)
[2019-02-28] MEDS: FLUCONAZOLE 200 MG/100 ML 100 ML IV SCH (15:23)
[2019-02-28] MEDS: THIAMINE 100 MG in SODIUM CHLORIDE 0.9% 50 ML IV SCH (18:11)
[2019-03-01] MEDS: DEXMEDETOMIDINE 1,000 MCG in SODIUM CHLORIDE 0.9% 240 ML IV PRN (01:51)
[2019-03-01] MEDS: ALBUTEROL/IPRATROPIUM 2.5MG/0.5MG, 3 ML NPPB SCH ×6 (02:19→22:19)
[2019-03-01] MEDS: PIPERACILLIN/TAZO 2.25 GM in NS 50 ML IV SCH ×3 (04:16→18:19)
[2019-03-01 04:37] LABS: MEAN CORPUSCULAR HEMOGLOBIN 30.6 pg (27.0-34.8); MEAN CORPUSCULAR VOLUME 92.7 fL (80-100)
[2019-03-01 04:39] LABS: ANION GAP 8 mmol/L (5-15); CALCIUM 7.9 mg/dL (8.5-10.1); CHLORIDE 122 mmol/L (98-107); CREATININE 0.64 mg/dL (0.55-1.02); TRIGLYCERIDES 285 mg/dL (50-200)
[2019-03-01 04:59] LABS: MD YES
[2019-03-01 05:00] LABS: ANISOCYTOSIS 1+; BAND#(MANUAL) 0.14 x10^3/uL; BANDS%(MANUAL) 2 % (0-7); LYMPH#(MANUAL) 1.22 x10^3/uL (1-3.4); LYMPHS% (MANUAL) 17 % (22-44); METAMYELOCYTES# (MANUAL) 0.07 x10^3/uL (0-0); METAMYELOCYTES% (MANUAL) 1 % (0-1); MONOS#(MANUAL) 0.22 x10^3/uL (0.3-2.7); MONOS% (MANUAL) 3 % (2-9); NRBC % (MANUAL) 2 % (0-1); SEG#(MANUAL) 5.54 x10^3/uL (1.8-6.8); SEGS% (MANUAL) 77 % (42-75)
[2019-03-01 05:01] LABS: POLYCHROMASIA 1+
[2019-03-01 05:03] LABS: <PLATELET ESTIMATE> DECREASED; LARGE PLATELETS 1+; MEAN PLATELET VOLUME 11.6 fL (7.4-10.4); PLATELET COUNT 131 x10^3/uL (130-400)
[2019-03-01] MEDS: KSCALE TO 4.0 IV SCH ×3 (05:28→20:59)
[2019-03-01] MEDS ORDERED: POTASSIUM CHLORIDE PMX 100 ML IV ONE ×3 (05:30→18:30)
[2019-03-01] MEDS: FENTANYL PF 2,500 MCG in SODIUM CHLORIDE 0.9% 200 ML IV PRN (05:32)
[2019-03-01] MEDS ORDERED: ETOMIDATE 20 MG/10 ML ONE (07:55)
[2019-03-01] MEDS ORDERED: ROCURONIUM 10MG/ML,5ML ONE (07:55)
[2019-03-01] MEDS ORDERED: PROPOFOL 10 MG/ML, 100ML IV ONE (07:55)
[2019-03-01] MEDS: PRENATAL VIT/IRON/FA 1 EACH TABLET PO SCH (08:19)
[2019-03-01] MEDS: PANTOPRAZOLE 40 MG IV IV SCH (08:19)
[2019-03-01] MEDS: RISPERIDONE 1 MG/ML ORAL SOLN PO SCH ×2 (08:20→21:02)
[2019-03-01] MEDS ORDERED: FUROSEMIDE 20 MG/2 ML ONE (10:01)
[2019-03-01] MEDS ORDERED: FUROSEMIDE 20 MG/2 ML IV STA (10:04)
[2019-03-01] MEDS ORDERED: FUROSEMIDE 20 MG/2 ML IV ONE (10:30)
[2019-03-01 13:57] LABS: FIO2 50 %
[2019-03-01] MEDS: THIAMINE 100 MG in SODIUM CHLORIDE 0.9% 50 ML IV SCH (18:19)
[2019-03-01] MEDS: PROPOFOL 100 ML IV PRN ×2 (18:26→23:06)
[2019-03-02] MEDS: PIPERACILLIN/TAZO 2.25 GM in NS 50 ML IV SCH ×4 (00:12→18:02)
[2019-03-02] MEDS: ALBUTEROL/IPRATROPIUM 2.5MG/0.5MG, 3 ML NPPB SCH ×6 (02:06→22:40)
[2019-03-02] MEDS: PROPOFOL 100 ML IV PRN (02:26)
[2019-03-02] MEDS: DEXMEDETOMIDINE 200 MCG in SODIUM CHLORIDE 0.9% 48 ML IV PRN ×2 (03:10→09:53)
[2019-03-02] MEDS ORDERED: HYDROmorphone 2 MG/ML, 1ML IVPush ONE (03:30)
[2019-03-02] MEDS: TEMAZEPAM 15 MG CAPSULE PO PRN ×2 (03:31→21:44)
[2019-03-02 03:45] LABS: MEAN CORPUSCULAR HEMOGLOBIN 30.1 pg (27.0-34.8); MEAN CORPUSCULAR HGB CONC 32.1 g/dL (32.4-35.8); MEAN CORPUSCULAR VOLUME 93.5 fL (80-100); MEAN PLATELET VOLUME 9.6 fL (7.4-10.4); PLATELET COUNT 195 x10^3/uL (130-400); RED BLOOD COUNT 2.54 x10^6/uL (3.82-5.3); RED CELL DISTRIBUTION WIDTH 18.8 % (9.6-15.2)
[2019-03-02 03:48] LABS: ANION GAP 8 mmol/L (5-15); CALCIUM 7.9 mg/dL (8.5-10.1); CHLORIDE 121 mmol/L (98-107); CREATININE 0.65 mg/dL (0.55-1.02)
[2019-03-02 03:52] LABS: MD YES
[2019-03-02] MEDS ORDERED: POTASSIUM CHLORIDE PMX 100 ML IV ONE ×3 (04:00→21:30)
[2019-03-02] MEDS: KSCALE TO 4.0 IV SCH ×3 (04:03→21:25)
[2019-03-02 04:08] LABS: ANISOCYTOSIS 1+; BAND#(MANUAL) 0.21 x10^3/uL; BANDS%(MANUAL) 3 % (0-7); LYMPHS% (MANUAL) 20 % (22-44); METAMYELOCYTES# (MANUAL) 0.14 x10^3/uL (0-0); METAMYELOCYTES% (MANUAL) 2 % (0-1); POLYCHROMASIA 1+; REACTIVE LYMPHS # (MANUAL) 0.21 x10^3/uL (0-0); REACTIVE LYMPHS % (MANUAL) 3 % (0-0); SEG#(MANUAL) 5.04 x10^3/uL (1.8-6.8); SEGS% (MANUAL) 72 % (42-75)
[2019-03-02 04:09] LABS: <PLATELET ESTIMATE> ADEQUATE; SCHISTOCYTES 1+
[2019-03-02 04:10] LABS: LARGE PLATELETS 1+
[2019-03-02] MEDS: PANTOPRAZOLE 40 MG IV IV SCH (09:53)
[2019-03-02] MEDS: PRENATAL VIT/IRON/FA 1 EACH TABLET PO SCH (09:53)
[2019-03-02] MEDS: RISPERIDONE 1 MG/ML ORAL SOLN PO SCH ×2 (09:53→20:14)
[2019-03-02] MEDS: FUROSEMIDE 20 MG/2 ML IV SCH (09:53)
[2019-03-02] MEDS ORDERED: MAGNESIUM SULFATE PMX 2GM/50ML 50 ML IV ONE (16:00)
[2019-03-02 16:42] LABS: INTERNATIONAL NORMALIZED RATIO 0.99 (0.93-1.1); PROTHROMBIN TIME 10.4 Seconds (9.6-11.5)
[2019-03-02] MEDS: THIAMINE 100 MG in SODIUM CHLORIDE 0.9% 50 ML IV SCH (17:04)
[2019-03-02] MEDS: ACETAMINOPHEN 650 MG/20.3 ML UDC PO PRN (20:40)
[2019-03-02] MEDS: DEXAMETHASONE 4 MG/ML, 1ML IV SCH (21:25)
[2019-03-03] MEDS: PIPERACILLIN/TAZO 2.25 GM in NS 50 ML IV SCH ×4 (00:54→20:30)
[2019-03-03] MEDS: ALBUTEROL/IPRATROPIUM 2.5MG/0.5MG, 3 ML NPPB SCH ×6 (02:50→23:25)
[2019-03-03 03:41] LABS: ANION GAP 8 mmol/L (5-15); CALCIUM 8.4 mg/dL (8.5-10.1); CHLORIDE 118 mmol/L (98-107)
[2019-03-03 03:42] LABS: CREATININE 0.64 mg/dL (0.55-1.02)
[2019-03-03 03:46] LABS: BASOPHILS % (AUTO) 0 % (0-1); EOSINOPHILS # (AUTO) 0.09 x10^3/uL (0-0.4); EOSINOPHILS % (AUTO) 1 % (1-7); LYMPHOCYTES # (AUTO) 0.92 x10^3/uL (1-3.4); LYMPHOCYTES % (AUTO) 12 % (22-44); MD NO; MEAN CORPUSCULAR HEMOGLOBIN 30.9 pg (27.0-34.8); MEAN CORPUSCULAR HGB CONC 33.3 g/dL (32.4-35.8); MEAN CORPUSCULAR VOLUME 92.8 fL (80-100); MEAN PLATELET VOLUME 9.1 fL (7.4-10.4); MONOCYTES % (AUTO) 3 % (2-9); NEUTROPHILS # (AUTO) 6.26 x10^3/uL (1.8-6.8); NEUTROPHILS % (AUTO) 84 % (42-75); PLATELET COUNT 285 x10^3/uL (130-400); RED BLOOD COUNT 2.63 x10^6/uL (3.82-5.3); RED CELL DISTRIBUTION WIDTH 20.3 % (9.6-15.2)
[2019-03-03] MEDS: DEXMEDETOMIDINE 200 MCG in SODIUM CHLORIDE 0.9% 48 ML IV PRN (03:58)
[2019-03-03] MEDS ORDERED: POTASSIUM CHLORIDE PMX 100 ML IV ONE ×5 (04:00→22:00)
[2019-03-03] MEDS: KSCALE TO 4.0 IV SCH ×4 (04:37→21:50)
[2019-03-03] MEDS: DEXAMETHASONE 4 MG/ML, 1ML IV SCH ×3 (09:09→21:46)
[2019-03-03] MEDS: PRENATAL VIT/IRON/FA 1 EACH TABLET PO SCH (09:09)
[2019-03-03] MEDS: PANTOPRAZOLE 40 MG IV IV SCH (09:10)
[2019-03-03] MEDS: FUROSEMIDE 20 MG/2 ML IV SCH (09:10)
[2019-03-03] MEDS: RISPERIDONE 0.5 MG TABLET PO SCH ×2 (12:21→21:47)
[2019-03-03] MEDS: THIAMINE 100 MG in SODIUM CHLORIDE 0.9% 50 ML IV SCH (17:38)
[2019-03-03] MEDS: TEMAZEPAM 15 MG CAPSULE PO PRN (21:47)
[2019-03-04] MEDS: DEXMEDETOMIDINE 200 MCG in SODIUM CHLORIDE 0.9% 48 ML IV PRN ×3 (00:34→21:50)
[2019-03-04] MEDS ORDERED: DEXMEDETOMIDINE 400 MCG in SODIUM CHLORIDE 0.9% 46 ML IV PRN (01:20)
[2019-03-04] MEDS: PIPERACILLIN/TAZO 2.25 GM in NS 50 ML IV SCH ×4 (01:59→20:12)
[2019-03-04] MEDS: ALBUTEROL/IPRATROPIUM 2.5MG/0.5MG, 3 ML NPPB SCH ×7 (02:14→22:39)
[2019-03-04] MEDS: ACETAMINOPHEN 650 MG/20.3 ML UDC PO PRN (03:06)
[2019-03-04 04:36] LABS: MEAN CORPUSCULAR HEMOGLOBIN 30.6 pg (27.0-34.8); MEAN CORPUSCULAR HGB CONC 32.8 g/dL (32.4-35.8); MEAN CORPUSCULAR VOLUME 93.3 fL (80-100); MEAN PLATELET VOLUME 9.1 fL (7.4-10.4); PLATELET COUNT 311 x10^3/uL (130-400); RED CELL DISTRIBUTION WIDTH 20.2 % (9.6-15.2)
[2019-03-04 04:44] LABS: ANION GAP 8 mmol/L (5-15); CALCIUM 8.1 mg/dL (8.5-10.1); CHLORIDE 117 mmol/L (98-107); CREATININE 0.66 mg/dL (0.55-1.02); TRIGLYCERIDES 290 mg/dL (50-200)
[2019-03-04 04:56] LABS: BASOPHILS # (AUTO) 0.01 x10^3/uL (0-0.1); BASOPHILS % (AUTO) 0 % (0-1); EOSINOPHILS # (AUTO) 0.09 x10^3/uL (0-0.4); EOSINOPHILS % (AUTO) 1 % (1-7); LYMPHOCYTES # (AUTO) 0.98 x10^3/uL (1-3.4); LYMPHOCYTES % (AUTO) 15 % (22-44); MD SCAN; MONOCYTES # (AUTO) 0.32 x10^3/uL (0.2-0.8); MONOCYTES % (AUTO) 5 % (2-9); NEUTROPHILS # (AUTO) 5.07 x10^3/uL (1.8-6.8); NEUTROPHILS % (AUTO) 78 % (42-75)
[2019-03-04] MEDS ORDERED: POTASSIUM CHLORIDE PMX 100 ML IV ONE ×2 (05:00→14:30)
[2019-03-04] MEDS: KSCALE TO 4.0 IV SCH ×4 (05:23→20:00)
[2019-03-04] MEDS: FUROSEMIDE 20 MG/2 ML IV SCH (09:33)
[2019-03-04] MEDS: RISPERIDONE 0.5 MG TABLET PO SCH ×2 (09:33→20:22)
[2019-03-04] MEDS: PANTOPRAZOLE 40 MG IV IV SCH (09:33)
[2019-03-04] MEDS: PRENATAL VIT/IRON/FA 1 EACH TABLET PO SCH (09:33)
[2019-03-04] MEDS: DEXAMETHASONE 4 MG/ML, 1ML IV SCH ×3 (09:34→20:22)
[2019-03-04] MEDS: FENTANYL PF 100 MCG/2ML IVPush PRN ×2 (13:07→21:49)
[2019-03-04] MEDS: OXYcodone/APAP 5/325MG TABLET PO PRN (16:03)
[2019-03-04] MEDS: CIPROFLOXACIN DEXAMETHASONE EAR SUSP 7.5ML RIGHT EAR SCH ×2 (17:25→20:23)
[2019-03-04] MEDS: THIAMINE 100 MG in SODIUM CHLORIDE 0.9% 50 ML IV SCH (17:29)
[2019-03-05] MEDS: CIPROFLOXACIN DEXAMETHASONE EAR SUSP 7.5ML RIGHT EAR SCH ×6 (00:41→20:58)
[2019-03-05] MEDS: PIPERACILLIN/TAZO 2.25 GM in NS 50 ML IV SCH ×3 (00:41→14:05)
[2019-03-05] MEDS: KSCALE TO 4.0 IV SCH (02:00)
[2019-03-05] MEDS: ALBUTEROL/IPRATROPIUM 2.5MG/0.5MG, 3 ML NPPB SCH ×6 (02:44→22:41)
[2019-03-05 04:13] LABS: BASOPHILS # (AUTO) 0.03 x10^3/uL (0-0.1); BASOPHILS % (AUTO) 0 % (0-1); EOSINOPHILS # (AUTO) 0.03 x10^3/uL (0-0.4); EOSINOPHILS % (AUTO) 0 % (1-7); LYMPHOCYTES # (AUTO) 1.18 x10^3/uL (1-3.4); LYMPHOCYTES % (AUTO) 20 % (22-44); MD NO; MEAN CORPUSCULAR HEMOGLOBIN 29.7 pg (27.0-34.8); MEAN CORPUSCULAR HGB CONC 32.4 g/dL (32.4-35.8); MEAN CORPUSCULAR VOLUME 91.7 fL (80-100); MEAN PLATELET VOLUME 8.8 fL (7.4-10.4); MONOCYTES # (AUTO) 0.36 x10^3/uL (0.2-0.8); MONOCYTES % (AUTO) 6 % (2-9); NEUTROPHILS # (AUTO) 4.39 x10^3/uL (1.8-6.8); NEUTROPHILS % (AUTO) 74 % (42-75); PLATELET COUNT 355 x10^3/uL (130-400); RED BLOOD COUNT 2.63 x10^6/uL (3.82-5.3)
[2019-03-05 04:22] LABS: ANION GAP 6 mmol/L (5-15); CALCIUM 8.2 mg/dL (8.5-10.1); CHLORIDE 115 mmol/L (98-107); CREATININE 0.57 mg/dL (0.55-1.02)
[2019-03-05] MEDS ORDERED: POTASSIUM CHLORIDE PMX 100 ML IV ONE ×2 (05:00)
[2019-03-05] MEDS ORDERED: MIDAZOLAM 1 MG/ML, 5ML ONE ×2 (08:37→09:57)
[2019-03-05] MEDS: hydrALAzine 20 MG/ML, 1ML IV PRN (08:47)
[2019-03-05] MEDS: FUROSEMIDE 20 MG/2 ML IV SCH (09:26)
[2019-03-05] MEDS: PANTOPRAZOLE 40 MG IV IV SCH (09:26)
[2019-03-05] MEDS: DEXAMETHASONE 4 MG/ML, 1ML IV SCH ×3 (09:28→20:58)
[2019-03-05] MEDS ORDERED: VECURONIUM 10 MG ONE (09:48)
[2019-03-05] MEDS: LABETALOL 5MG/ML, 20ML IVPush PRN (10:33)
[2019-03-05] MEDS ORDERED: VECURONIUM 10 MG IVPush ONE (11:30)
[2019-03-05] MEDS ORDERED: FENTANYL PF 100 MCG/2ML IVPush ONE (11:30)
[2019-03-05] MEDS ORDERED: MIDAZOLAM 1 MG/ML, 5ML IVPush ONE (11:30)
[2019-03-05] MEDS: METOPROLOL 1 MG/ML, 5ML IVPush PRN ×2 (12:48→16:37)
[2019-03-05] MEDS: PRENATAL VIT/IRON/FA 1 EACH TABLET PO SCH (13:07)
[2019-03-05] MEDS: RISPERIDONE 0.5 MG TABLET PO SCH ×2 (13:07→20:58)
[2019-03-05] MEDS: THIAMINE 100 MG in SODIUM CHLORIDE 0.9% 50 ML IV SCH (17:12)
[2019-03-05] MEDS: FENTANYL PF 100 MCG/2ML IVPush PRN (19:14)
[2019-03-05] MEDS: PIPERACILLIN/TAZO/PMX 3.375GM 50 ML IV SCH (20:58)
[2019-03-05] MEDS: OXYcodone/APAP 5/325MG TABLET PO PRN (21:31)
[2019-03-06] MEDS: CIPROFLOXACIN DEXAMETHASONE EAR SUSP 7.5ML RIGHT EAR SCH ×6 (01:02→21:45)
[2019-03-06] MEDS: ALBUTEROL/IPRATROPIUM 2.5MG/0.5MG, 3 ML NPPB SCH ×6 (03:00→23:00)
[2019-03-06 04:45] LABS: BASOPHILS # (AUTO) 0.03 x10^3/uL (0-0.1); BASOPHILS % (AUTO) 0 % (0-1); EOSINOPHILS # (AUTO) 0.06 x10^3/uL (0-0.4); EOSINOPHILS % (AUTO) 1 % (1-7); LYMPHOCYTES # (AUTO) 1.71 x10^3/uL (1-3.4); LYMPHOCYTES % (AUTO) 24 % (22-44); MD NO; MEAN CORPUSCULAR HEMOGLOBIN 30.4 pg (27.0-34.8); MEAN CORPUSCULAR HGB CONC 32.2 g/dL (32.4-35.8); MEAN CORPUSCULAR VOLUME 94.4 fL (80-100); MEAN PLATELET VOLUME 9.1 fL (7.4-10.4); MONOCYTES # (AUTO) 0.49 x10^3/uL (0.2-0.8); MONOCYTES % (AUTO) 7 % (2-9); NEUTROPHILS # (AUTO) 4.76 x10^3/uL (1.8-6.8); NEUTROPHILS % (AUTO) 68 % (42-75); PLATELET COUNT 372 x10^3/uL (130-400); RED BLOOD COUNT 2.63 x10^6/uL (3.82-5.3); RED CELL DISTRIBUTION WIDTH 21.1 % (9.6-15.2)
[2019-03-06 04:47] LABS: CHLORIDE 112 mmol/L (98-107)
[2019-03-06] MEDS: OXYcodone/APAP 5/325MG TABLET PO PRN ×3 (04:47→22:32)
[2019-03-06 04:48] LABS: ANION GAP 6 mmol/L (5-15); CALCIUM 8.3 mg/dL (8.5-10.1); CREATININE 0.61 mg/dL (0.55-1.02)
[2019-03-06] MEDS: PIPERACILLIN/TAZO/PMX 3.375GM 50 ML IV SCH ×4 (04:48→21:44)
[2019-03-06] MEDS ORDERED: MAGNESIUM SULFATE PMX 2GM/50ML 50 ML IV ONE (08:30)
[2019-03-06] MEDS ORDERED: MAGNESIUM OXIDE 400 MG TABLET PO SCH (09:00)
[2019-03-06] MEDS: POTASSIUM CHLORIDE 10% 40 MEQ/30 ML UDC PO SCH ×2 (09:09→21:44)
[2019-03-06] MEDS: FUROSEMIDE 20 MG/2 ML IV SCH (09:10)
[2019-03-06] MEDS: PRENATAL VIT/IRON/FA 1 EACH TABLET PO SCH (09:10)
[2019-03-06] MEDS: PANTOPRAZOLE 40 MG IV IV SCH (09:10)
[2019-03-06] MEDS: RISPERIDONE 0.5 MG TABLET PO SCH ×2 (09:10→21:45)
[2019-03-06] MEDS: DEXAMETHASONE 4 MG/ML, 1ML IV SCH ×3 (09:12→21:45)
[2019-03-06] MEDS ORDERED: FENTANYL PF 100 MCG/2ML ONE (13:58)
[2019-03-06] MEDS ORDERED: MIDAZOLAM 1 MG/ML, 5ML ONE (14:41)
[2019-03-06] MEDS: THIAMINE 100 MG in SODIUM CHLORIDE 0.9% 50 ML IV SCH (17:59)
[2019-03-06] MEDS: DOCUSATE 100 MG CAPSULE PO PRN (17:59)
[2019-03-06] MEDS ORDERED: FENTANYL PF 100 MCG/2ML IVPush ONE (18:00)
[2019-03-06] MEDS ORDERED: MIDAZOLAM 1 MG/ML, 5ML IVPush ONE (18:00)
[2019-03-06] MEDS: hydrALAzine 20 MG/ML, 1ML IV PRN (21:43)
[2019-03-06] MEDS: LABETALOL 5MG/ML, 20ML IVPush PRN (23:32)
[2019-03-07] MEDS: CIPROFLOXACIN DEXAMETHASONE EAR SUSP 7.5ML RIGHT EAR SCH ×4 (02:39→16:08)
[2019-03-07] MEDS: ALBUTEROL/IPRATROPIUM 2.5MG/0.5MG, 3 ML NPPB SCH ×4 (03:00→14:47)
[2019-03-07] MEDS: PIPERACILLIN/TAZO/PMX 3.375GM 50 ML IV SCH (04:14)
[2019-03-07] MEDS: OXYcodone/APAP 5/325MG TABLET PO PRN ×5 (04:37→16:07)
[2019-03-07 04:52] LABS: ANION GAP 6 mmol/L (5-15); CALCIUM 8.4 mg/dL (8.5-10.1); CHLORIDE 108 mmol/L (98-107)
[2019-03-07 04:53] LABS: CREATININE 0.55 mg/dL (0.55-1.02)
[2019-03-07 05:00] LABS: MEAN CORPUSCULAR HEMOGLOBIN 30.5 pg (27.0-34.8); MEAN CORPUSCULAR HGB CONC 32.2 g/dL (32.4-35.8); MEAN CORPUSCULAR VOLUME 94.8 fL (80-100); PLATELET COUNT 444 x10^3/uL (130-400); RED BLOOD COUNT 3.14 x10^6/uL (3.82-5.3); RED CELL DISTRIBUTION WIDTH 21.2 % (9.6-15.2)
[2019-03-07 05:50] LABS: BASOPHILS # (AUTO) 0.03 x10^3/uL (0-0.1); BASOPHILS % (AUTO) 0 % (0-1); EOSINOPHILS # (AUTO) 0.12 x10^3/uL (0-0.4); EOSINOPHILS % (AUTO) 2 % (1-7); LYMPHOCYTES # (AUTO) 1.69 x10^3/uL (1-3.4); LYMPHOCYTES % (AUTO) 21 % (22-44); MD SCAN; MONOCYTES # (AUTO) 0.43 x10^3/uL (0.2-0.8); MONOCYTES % (AUTO) 5 % (2-9); NEUTROPHILS % (AUTO) 72 % (42-75)
[2019-03-07] MEDS ORDERED: MAGNESIUM SULFATE PMX 2GM/50ML 50 ML IVPB ONE (08:30)
[2019-03-07] MEDS: PANTOPRAZOLE 40 MG IV IV SCH (08:47)
[2019-03-07] MEDS: PRENATAL VIT/IRON/FA 1 EACH TABLET PO SCH (08:49)
[2019-03-07] MEDS: FUROSEMIDE 20 MG/2 ML IV SCH (08:49)
[2019-03-07] MEDS: DOCUSATE 100 MG CAPSULE PO PRN (08:49)
[2019-03-07] MEDS: DEXAMETHASONE 4 MG/ML, 1ML IV SCH (08:50)
[2019-03-07] MEDS: RISPERIDONE 0.5 MG TABLET PO SCH (08:51)
[2019-03-07] MEDS ORDERED: MAGNESIUM OXIDE 400 MG TABLET PO SCH (09:00)
[2019-03-07] MEDS ORDERED: METOPROLOL 1 MG/ML, 5ML IVPush PRN (14:00)
[2019-03-07] MEDS ORDERED: METO5VIA IVPush (15:02)
[2019-03-07] MEDS ORDERED: ALPR0.254 PO (15:02)
[2019-03-07] MEDS ORDERED: MAGN400T50 PO (15:02)
[2019-03-07] MEDS ORDERED: LACT20SO13 PO (15:02)
[2019-03-07] MEDS ORDERED: FURO10VI37 IV (15:02)
[2019-03-07] MEDS ORDERED: OXYcodone/APAP 5/325MG PO ×2 (15:02)
[2019-03-07] MEDS ORDERED: RISP0.5T24 PO (15:02)
[2019-03-07] MEDS ORDERED: CALC200T24 PO (15:02)
[2019-03-07] MEDS ORDERED: MORP4VIA IVPush (15:02)
[2019-03-07] MEDS ORDERED: LABE5VIA13 IVPush (15:02)
[2019-03-07] MEDS ORDERED: TEMA15CA6 PO (15:02)
[2019-03-07] MEDS ORDERED: ACET650S21 PO (15:02)
[2019-03-07] MEDS ORDERED: DEXA4VIA39 IV (15:02)
[2019-03-07] MEDS ORDERED: Prenatal Vit/Iron/Fa PO (15:02)
[2019-03-07] MEDS ORDERED: CIPR7.5D RIGHT EAR (15:02)
[2019-03-07] MEDS ORDERED: PANT40VI IV (15:02)
[2019-03-07] MEDS ORDERED: ONDA4VIA60 IV (15:02)
[2019-03-07] MEDS ORDERED: IPRA3AMP30 NPPB (15:02)
[2019-03-07] MEDS ORDERED: DOCU100C33 PO (15:02)
[2019-03-07] MEDS ORDERED: THIA100V3 IV (15:02)
[2019-03-07] MEDS ORDERED: HYDR20VI3 IV (15:02)
[2019-03-07] MEDS ORDERED: FENT50VI28 IVPush (15:02)
[2019-03-07] MEDS ORDERED: BISA10SU4 PR (15:02)
[2019-03-07] MEDS: THIAMINE 100 MG in SODIUM CHLORIDE 0.9% 50 ML IV SCH (17:29)
[2019-03-07] MEDS ORDERED: RISPERIDONE 0.5 MG TABLET PO SCH (21:00)
[2019-03-07] MEDS ORDERED: DEXAMETHASONE 4 MG/ML, 1ML IV SCH (21:00)
== END 2019-03-07 18:13 | DRG 3 ==
LOC: LDOP 18:48 → OBSVTOIN 20:25 → LDIP 20:25 → CCU 02-16 11:01 → 4WST 02-16 17:47 → CCU 02-17 08:16
PROVIDERS: ADMIT Obstetrics & Gynecology; ATTEND Internal Medicine
PROC: 10D00Z1 Extraction of Products of Conception, Low, Open Approach (ICD-10-PCS; principal; 2019-02-15)
PROC: 5A12012 Performance of Cardiac Output, Single, Manual (ICD-10-PCS; 2019-02-16)
PROC: 30233N1 Transfusion of Nonautologous Red Blood Cells into Peripheral Vein, Percutaneous Approach (ICD-10-PCS; 2019-02-16)
PROC: 04V23DZ Restriction of Gastric Artery with Intraluminal Device, Percutaneous Approach (ICD-10-PCS; 2019-02-17)
PROC: 02H633Z Insertion of Infusion Device into Right Atrium, Percutaneous Approach (ICD-10-PCS; 2019-02-17)
PROC: 04HY32Z Insertion of Monitoring Device into Lower Artery, Percutaneous Approach (ICD-10-PCS; 2019-02-17)
PROC: 30233M1 Transfusion of Nonautologous Plasma Cryoprecipitate into Peripheral Vein, Percutaneous Approach (ICD-10-PCS; 2019-02-17)
PROC: 30233K1 Transfusion of Nonautologous Frozen Plasma into Peripheral Vein, Percutaneous Approach (ICD-10-PCS; 2019-02-19)
PROC: 30233R1 Transfusion of Nonautologous Platelets into Peripheral Vein, Percutaneous Approach (ICD-10-PCS; 2019-02-20)
PROC: 0B113F4 Bypass Trachea to Cutaneous with Tracheostomy Device, Percutaneous Approach (ICD-10-PCS; 2019-03-05)
DX: O75.3 Other infection during labor (principal); S22.20XA Unspecified fracture of sternum, initial encounter for closed fracture; S22.5XXA Flail chest, initial encounter for closed fracture; J18.9 Pneumonia, unspecified organism; A41.9 Sepsis, unspecified organism; E43 Unspecified severe protein-calorie malnutrition; D65 Disseminated intravascular coagulation [defibrination syndrome]; R57.8 Other shock; J96.01 Acute respiratory failure with hypoxia; I46.9 Cardiac arrest, cause unspecified; K72.00 Acute and subacute hepatic failure without coma; N17.0 Acute kidney failure with tubular necrosis; G93.41 Metabolic encephalopathy; D62 Acute posthemorrhagic anemia; D68.8 Other specified coagulation defects; E87.0 Hyperosmolality and hypernatremia; O99.324 Drug use complicating childbirth; K92.2 Gastrointestinal hemorrhage, unspecified; Z99.11 Dependence on respirator [ventilator] status; O99.43 Diseases of the circulatory system complicating the puerperium; J90 Pleural effusion, not elsewhere classified; N13.30 Unspecified hydronephrosis; O26.833 Pregnancy related renal disease, third trimester; O41.03X0 Oligohydramnios, third trimester, not applicable or unspecified; O98.32 Other infections with a predominantly sexual mode of transmission complicating childbirth; O98.42 Viral hepatitis complicating childbirth; O99.12 Other diseases of the blood and blood-forming organs and certain disorders involving the immune mechanism complicating childbirth; O99.354 Diseases of the nervous system complicating childbirth; F15.23 Other stimulant dependence with withdrawal; Z3A.37 37 weeks gestation of pregnancy; Z37.0 Single live birth; O99.52 Diseases of the respiratory system complicating childbirth; O99.284 Endocrine, nutritional and metabolic diseases complicating childbirth; O25.2 Malnutrition in childbirth; B18.2 Chronic viral hepatitis C; E83.41 Hypermagnesemia; E83.51 Hypocalcemia; O76 Abnormality in fetal heart rate and rhythm complicating labor and delivery; O77.0 Labor and delivery complicated by meconium in amniotic fluid; O99.89 Other specified diseases and conditions complicating pregnancy, childbirth and the puerperium; O99.62 Diseases of the digestive system complicating childbirth; O14.14 Severe pre-eclampsia complicating childbirth; O9A.22 Injury, poisoning and certain other consequences of external causes complicating childbirth; O90.89 Other complications of the puerperium, not elsewhere classified; R04.0 Epistaxis; S30.1XXA Contusion of abdominal wall, initial encounter; Z51.5 Encounter for palliative care; Z87.891 Personal history of nicotine dependence; O99.53 Diseases of the respiratory system complicating the puerperium; O26.63 Liver and biliary tract disorders in the puerperium; O36.5930 Maternal care for other known or suspected poor fetal growth, third trimester, not applicable or unspecified; A59.9 Trichomoniasis, unspecified; H60.91 Unspecified otitis externa, right ear; Z68.28 Body mass index [BMI] 28.0-28.9, adult
CPT/HCPCS: 36415; 36600; 85730; 87806; J3490; J7121; J7620; J7644; 31622; 37244; 70450; 70551; 71045; 71250; 72197; 74174; 74176; 74183; 76805; 78278; 80048; 80053; 81001; 82140; 82150; 82247; 82248; 82330; 82436; 82550; 82570; 82607; 82728; 82803; 82962; 83010; 83540; 83550; 83615; 83690; 83735; 83935; 84132; 84133; 84156; 84300; 84443; 84478; 84550; 85014; 85018; 85025; 85045; 85049; 85379; 85384; 85397; 85610; 86160; 86162; 86592; 86762; 86803; 86850; 86900; 86923; 87040; 87070; 87081; 87086; 87205; 87340; 87389; 87521; 88307; 92950; 93005; 93306; 93970; 94002; 94003; 94640; 94690; C1760; G0378; J0290; J0456; J0461; J0690; J0696; J0702; J1100; J1170; J1756; J1940; J2020; J2250; J2405; J2543; J2704; J3010; J3411; J3430; J3480; J7070; P9047; Q9966; Q9967; A9560; C1751; C1769; C1887; C9113; C9898; G0475; J0330; J0360; J1120; J1450; J2270; J2590; J3475; J7030; J7050; J7120; P9012; P9016; P9017; P9035

== ENCOUNTER 2019-06-04 17:24 | Emergency (ER) | payer MEDICAID ==
[~2019-06-04] VITALS: Ht 152.4 cm; Wt 56.8 kg
[~2019-06-04 17:24] MED LIST changes: +ACET650S21 PO; +ALPR0.254 PO; +BISA10SU4 PR; +CALC200T24 PO; +CIPR7.5D RIGHT EAR; +DEXA4VIA39 IV; +DOCU100C33 PO; +FENT50VI28 IVPush; +FURO10VI37 IV; +HYDR20VI3 IV; +IPRA3AMP30 NPPB; +LABE5VIA13 IVPush; +LACT20SO13 PO; +MAGN400T50 PO; +METO5VIA IVPush; +MORP4VIA IVPush; +ONDA4VIA60 IV; +OXYcodone/APAP 5/325MG PO; +PANT40VI IV; +Prenatal Vit/Iron/Fa PO; +RISP0.5T24 PO; +TEMA15CA6 PO; +THIA100V3 IV
[2019-06-04 17:25] VITALS: BP 115/56
[2019-06-04 18:06] LABS: BASOPHILS # (AUTO) 0.06 x10^3/uL (0-0.1); BASOPHILS % (AUTO) 1 % (0-1); EOSINOPHILS # (AUTO) 0.02 x10^3/uL (0-0.4); EOSINOPHILS % (AUTO) 0 % (1-7); LYMPHOCYTES # (AUTO) 2.38 x10^3/uL (1-3.4); LYMPHOCYTES % (AUTO) 19 % (22-44); MD NO; MEAN CORPUSCULAR HEMOGLOBIN 28.3 pg (27.0-34.8); MEAN CORPUSCULAR HGB CONC 33.4 g/dL (32.4-35.8); MEAN CORPUSCULAR VOLUME 84.9 fL (80-100); MEAN PLATELET VOLUME 8.9 fL (7.4-10.4); MONOCYTES # (AUTO) 0.52 x10^3/uL (0.2-0.8); MONOCYTES % (AUTO) 4 % (2-9); NEUTROPHILS # (AUTO) 9.54 x10^3/uL (1.8-6.8); NEUTROPHILS % (AUTO) 76 % (42-75); PLATELET COUNT 777 x10^3/uL (130-400); RED BLOOD COUNT 4.21 x10^6/uL (3.82-5.3); RED CELL DISTRIBUTION WIDTH 13.8 % (9.6-15.2)
[2019-06-04 18:18] LABS: ALBUMIN 2.8 g/dL (3.4-5.0); ANION GAP 7 mmol/L (5-15); CALCIUM 9.3 mg/dL (8.5-10.1); CHLORIDE 105 mmol/L (98-107)
[2019-06-04 18:24] LABS: ALANINE AMINOTRANSFERASE 17 U/L (12-78); ALKALINE PHOSPHATASE 229 U/L (45-117); BILIRUBIN,TOTAL 0.2 mg/dL (0.2-1.0); TOTAL PROTEIN 9.5 g/dL (6.4-8.2); TROPONIN I < 0.015 ng/mL (0.000-0.045)
--- NOTE | 2019-06-04 19:02 | NUR ---
not in lobby
--- NOTE | 2019-06-04 19:35 | NUR ---
pt not in lobby
--- NOTE | 2019-06-04 20:05 | NUR ---
not in lobby. called x3
== END 2019-06-04 20:07 | disposition left against medical advice (07) ==
LOC: ED 18:24
DX: R07.9 Chest pain, unspecified (principal); M54.5 Low back pain
CPT/HCPCS: 36415; 71046; 80053; 83880; 84484; 84703; 85025; 93005; 99285

== ENCOUNTER 2020-07-06 23:43 | Emergency (ER) | payer MEDICAID ==
[~2020-07-06] VITALS: Ht 152.4 cm; Wt 68.5 kg
[2020-07-06 23:45] VITALS: BP 119/73
--- NOTE | 2020-07-07 00:16 | NUR ---
pt not in lobby
--- NOTE | 2020-07-07 00:24 | NUR ---
not in lobby
--- NOTE | 2020-07-07 00:48 | NUR ---
pt to room at this time
[2020-07-07] MEDS ORDERED: HYDROcodone/APAP 5/325 TABLET ONE (01:40)
--- NOTE | 2020-07-07 01:46 | NUR ---
PT. REPORTS HER FRIEND IS COMING TO PICK HER UP FOR SAFE D/C.
[2020-07-07] MEDS ORDERED: HYDROcodone/APAP 5/325 TABLET PO ONE (02:00)
== END 2020-07-07 01:47 | disposition home or self-care (01) ==
LOC: ED 07-07 01:46
DX: H60.503 Unspecified acute noninfective otitis externa, bilateral (principal); H65.03 Acute serous otitis media, bilateral
CPT/HCPCS: 99283

== ENCOUNTER 2020-09-13 21:02 | Emergency (ER) | payer MEDICAID ==
[~2020-09-13] VITALS: Ht 152.4 cm; Wt 70.0 kg
--- NOTE | 2020-09-13 21:42 | NUR ---
MED REQUESTED FROM PHARMACY.
[2020-09-13 21:53] LABS: BASOPHILS % (AUTO) 0 % (0-1); EOSINOPHILS % (AUTO) 0 % (1-7); LYMPHOCYTES % (AUTO) 17 % (22-44); MEAN CORPUSCULAR HEMOGLOBIN 29.3 pg (27.0-34.8); MEAN CORPUSCULAR HGB CONC 34.3 g/dL (32.4-35.8); MEAN PLATELET VOLUME 8.8 fL (7.4-10.4); MONOCYTES % (AUTO) 6 % (2-9); NEUTROPHILS % (AUTO) 77 % (42-75); PLATELET COUNT 269 x10^3/uL (130-400); RED BLOOD COUNT 4.14 x10^6/uL (3.82-5.3); RED CELL DISTRIBUTION WIDTH 13.7 % (9.6-15.2)
[2020-09-13] MEDS ORDERED: NALOXONE 0.4 MG/ML, 1ML IVPush PRN (22:00)
[2020-09-13] MEDS ORDERED: THIAMINE 100 MG in SODIUM CHLORIDE 0.9% 50 ML IVPB ONE (22:00)
[2020-09-13] MEDS ORDERED: SODIUM CHLORIDE 0.9% 1,000ML IVBOLUS ONE (22:00)
[2020-09-13 22:04] LABS: ALANINE AMINOTRANSFERASE 81 U/L (12-78); ALBUMIN 3.2 g/dL (3.4-5.0); ANION GAP 6 mmol/L (5-15); CALCIUM 8.1 mg/dL (8.5-10.1); CHLORIDE 109 mmol/L (98-107); CREATININE 0.71 mg/dL (0.55-1.02); SALICYLATE LEVEL < 1.7 mg/dL (2.8-20.0)
[2020-09-13 22:09] LABS: ALKALINE PHOSPHATASE 129 U/L (45-117); BILIRUBIN,TOTAL 0.3 mg/dL (0.2-1.0); TOTAL PROTEIN 7.4 g/dL (6.4-8.2)
--- NOTE | 2020-09-13 23:26 | NUR ---
REPORT FROM ACE TORRES. PT RESTING WITH NO NEEDS AT THIS TIME. CALL LIGHT IN REACH
--- NOTE | 2020-09-14 00:23 | NUR ---
PT WAKES TO VERBAL STIMULI. PT SATING 98 ON RA. PT REQUESTED WATER. OK PER ERP. PT DRINKING WATER WITH NO DIFFICULTY. VSS. CALL LIGHT IN REACH
--- NOTE | 2020-09-14 00:27 | NUR ---
Report from BRIAN Bergeron. This RN to assume care.
[2020-09-14 01:27] VITALS: BP 108/60
== END 2020-09-14 01:52 | disposition home or self-care (01) ==
LOC: MERGE 21:02 → ED 21:07
DX: S00.03XA Contusion of scalp, initial encounter (principal); T40.1X1A Poisoning by heroin, accidental (unintentional), initial encounter; R07.89 Other chest pain; I25.2 Old myocardial infarction; J45.909 Unspecified asthma, uncomplicated; F17.210 Nicotine dependence, cigarettes, uncomplicated; Z86.19 Personal history of other infectious and parasitic diseases; X58.XXXA Exposure to other specified factors, initial encounter; Y93.89 Activity, other specified; Y92.89 Other specified places as the place of occurrence of the external cause; Y99.8 Other external cause status
CPT/HCPCS: 36415; 70450; 71045; 80053; 80299; 80320; 84703; 85025; 93005; 96365; 99285; 99406; J3411; J7030; 80329; G0480